=== PATIENT | male | born 1940 | race Caucasian/White ===

== ENCOUNTER 2025-02-11 12:42 | Outpatient (CLI) | payer MEDICARE, SELFPAY | END 2025-02-11 12:43 | disposition home or self-care (01) | PROVIDERS: PCP Internal Medicine; Visit Provider Nurse Practitioner Family | DX: I48.0 Paroxysmal atrial fibrillation (principal); I51.7 Cardiomegaly; I35.2 Nonrheumatic aortic (valve) stenosis with insufficiency | CPT/HCPCS: 93306 ==

== ENCOUNTER 2025-02-17 18:30 | Inpatient (IN) | payer MEDICARE, SELFPAY ==
--- OUTSIDE RECORDS SUMMARY | 2025-01-07 07:30 | XMS_ITS | Encounter Summary ---
Author Organization [facility] Address [address] [place] [address] Care Team Providers Care Plant Utility Person Name Role Phone Unavailable Primary Care Provider Unavailabl e Reason for Visit * Reason Onset Date Comments Pre-visit Intake 01/07/2025 * Appointment Request (Routine) - Authorized Specialty Diagnoses / Procedures Referred By Joãoac t Referred To Contact Oncology Referral ID Status Reason Start Date Expiration Date V isits Requested Visits Authorized [id number] Authorized 10/18/2024 01/18/2026 1 1 Encounter Details Date Type Department Care Team (Latest Contact Info) Description 01/07/2025 7:30 AM CDT Clinical Communication Virtual Review in [place], [place] 200 [place] [address] Pre-visit Intake Social History Tobacco Use Types Packs/Day Years Used Date Smoking Tobacco: Never Passive Smoke Exposure: Never Smokeless Tobacco: Never Alcohol Use Standard Drinks/Week Comments Yes 1 (1 standard drink = 0.6 oz pur e alcohol) one beer a week [facility] Utilities Answer Date Recorded In the past 12 months has e electric, gas, oil, or water company threatened to shut off services in your home? No 12/02/2024 Hunger Vital Sign Answer Date Recorded Within the past 12 months, y ou worried that your food would run out before you got the money to buy more. Never true 12/03/19 25 Within the past 12 months, t he food you bought just didn't last and you didn't have money to get more. Never true 12/02/2024 PRAPARE - Transportation Answer Date Re corded In the past 12 months, has l ack of transportation kept you from medical appointments or from getting medications? No 11/07 In the past 12 months, has l ack of transportation kept you from meetings, work, or from getting things needed for daily living? No 12/02/2024 Housing Stability Answer Date Recorded What is your living situation today? I have a [facility] place to live 12/02/2024 Sex and Gender Information Value Date Recorded Sex Assigned at Male 09/25/2019 4:40 PM BUILDING SUPERINTENDENT Legal Sex Male 11:17 AM BUILDING SUPERINTENDENT Gender Identity Male 09/25/2019 4:40 PM BUILDING SUPERINTENDENT Sexual Orientation Not on file documented as of this encounter Plan of Treatment Not on file documented as of this encounter Visit Diagnoses Not on filedocumented in this encounter Additional Health Concerns Infection Onset Date Last Indicated Resolved Time Protective Environment 11/12/2022 11/12/2022 documented as of this encounter
--- OUTSIDE RECORDS SUMMARY | 2025-01-08 11:17 | XMS_ITS | Encounter Summary ---
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 [address] [place] [phone] Malignant Neoplasm Of Colon (HCC) Discharge Disposition: Home or Self Care Social History Tobacco Use Types Packs/Day Years Used Date Smoking Tobacco: Never Passive Smoke Exposure: Never Smokeless Tobacco: Never Alcohol Use Standard Drinks/Week Comments Yes 1 (1 standard drink = 0.6 oz pur e alcohol) one beer a week [facility] Utilities Answer Date Recorded In [...] your living situation today? I have a [facility] place to live 12/02/2024 Sex and Gender Information Value Date Recorded Sex Assigned at Male 09/25/2019 4:40 PM ON SITE CONSTRUCTION SUPERINTENDENT Legal Sex Male 11:17 AM ON SITE CONSTRUCTION SUPERINTENDENT Gender Identity Male 09/25/2019 4:40 PM ON SITE CONSTRUCTION SUPERINTENDENT Sexual Orientation Not on file documented as of this encounter Medications at Time of Discharge acetaminophen (TYLENOL) 500 mg tablet Take 2 tablets by mouth every 6 (six) hours as needed for pain. 05/06/2016 amLODIPine (NORVASC) 5 mg tablet Take 5 mg by mouth daily. 06/10/2023 amoxicillin (AMOXIL) 500 mg capsule Take 4 capsules by mouth as directed. apixaban (Eliquis) 5 mg tablet Take 10 mg by mouth daily. aspirin 81 mg chewable tablet Chew 81 mg every morning. chew and swallow 12/28/2024 atenoloL (TENORMIN) 25 mg tablet Take 1 tablet by mouth every morning. atorvastatin (LIPITOR) 10 mg tablet Take 10 mg by mouth daily. 06/15/2019 blood sugar diagnostic (glucose blood) strips Use to test blood sugar 1 time daily 02/28/2019 capecitabine (XELODA) 150 mg tabletIndication s:Malignant Neoplasm Of Colon (HCC) Take 5 tablets (750 mg total) by mouth 2 (two) times a day with 1 other capecitabine prescription for 2,250 mg total. Days 1-7 and 15-21. 140 tablet 11/21/2019 capecitabine (XELODA) 500 mg tabletIndication s:Malignant Neoplasm Of Colon (HCC) Take 3 tablets (1,500 mg total) by mouth 2 (two) times a day with 1 other capecitabine prescription for 2,250 mg total. Days 1-7 and 15-21. 84 tablet 11/21/2019 carboxymethylcel lulose (Refresh Tears) 0.5 % ophthalmic solution Administer 1 drop into both eyes daily. cholecalciferol (VITAMIN D3) 50 mcg (2,000 Unit) tablet Take 1 tablet by mouth daily. clobetasoL (TEMOVATE) 0.05 % cream APPLY TO THE AFFECTED AREA(S) TOPICALLY TWICE DAILY FOR ONE WEEK OR UNTIL RESOLUTION. 12/05/2020 clopidogreL (Plavix) 75 mg tablet Take 75 mg by mouth daily. cyanocobalamin/f olic acid (vitamin N37-rwfbe acid) 1,000-400 mcg lozenge hydroCHLOROthiaz erika (HYDRODIURIL) 12.5 mg tablet Take 12.5 mg by mouth 3 (three) times a week. Tuesday, Tuesday and Tuesday ibuprofen (ADVIL,MOTRIN) 200 mg capsule Take 3 capsules (600 mg total) by mouth every 6 (six) hours as needed for pain, mild pain or score 1-3 of 10 or moderate pain or score 4-6 of 10. Do not take for more than 2 weeks continuously Do not take more than 2400 mg in one day Take with food 09/05/2023 Jardiance 10 mg tablet Take 10 mg by mouth every morning before breakfast. 03/04/2023 lisinopril (PRINIVIL,ZESTRI L) 5 mg tablet Take 5 mg by mouth daily. 06/27/2019 melatonin 1 mg tablet Take 2 mg by mouth at bedtime as needed. metFORMIN XR (Glucophage-XR) 500 mg 24 hr tablet Take 1,000 mg by mouth daily with morning meal. 12/07/2024 omega 8-ayx-xqi-fish oil (fish oil) 100-160-1,000 mg capsule vit A/vit C/vit E/zinc/copper (ICAPS AREDS ORAL) Take 1 capsule by mouth 2 (two) times a day. documented as of this encounter Plan of Treatment Not on file documented as of this encounter Procedures Procedure Name Priority Date/Time Associated Diagnosis Comments CBC WITH DIFFERENTIAL, B Routine 025 11:48 AM CDT Malignant Neoplasm Of Colon (HCC) ASPARTATE AMINOTRANSFERASE (AST), S/P Routine 01/08/2025 11:48 AM CDT Malignant Neoplasm Of Colon (HCC) ALKALINE PHOSPHATASE, S/P Routine 01/08/2025 11:48 AM CDT Malignant Neoplasm Of Colon (HCC) BILIRUBIN, TOT, S/P Routine 01/08/2025 1 1:48 AM CDT Malignant Neoplasm Of Colon (HCC) BASIC METABOLIC PANEL, S/P Routine 01/08/2025 11:48 AM CDT Malignant Neoplasm Of Colon (HCC) documented in this encounter Results * Alkaline Phosphatase (01/08/2025 11:48 AM CDT) Alkaline Phosphatase, S 105 40 - 129 U/L 01/08/2025 1:02 PM CDT DTL Blood (Blood, Venous) 01/08/2025 11:48 AM CDT 01/08/2025 12:43 PM CDT us Juve Ocampo M.D. LAB BLOOD ADD-ON Final Re sult Performing Organization Address City/[facility]/ZIP Co de Phone Number [facility] [address] [facility] 200 [place] [address] * AST (Aspartate Aminotransferase) (01/08/2025 11:48 AM CDT) Aspartate Aminotransferase (AST), S 27 8 - 48 U/L 01/08/2025 1:02 PM CDT DTL Blood (Blood, Venous) 01/08/2025 11:48 AM CDT 01/08/2025 12:43 PM CDT us Juve Ocampo M.D. LAB BLOOD ADD-ON Final Re sult [facility] [address] [facility] 200 [place] [address] * Bilirubin, Total (01/08/2025 11:48 AM CDT) Bilirubin, Total, S 0.5 0.0 - 1.2 mg/dL 01/08/2025 1:02 PM CDT DTL Blood (Blood, Venous) 01/08/2025 11:48 AM CDT 01/08/2025 12:43 PM CDT Juve Ocampo M.D. LAB BLOOD ADD-ON Final Re sult [facility] [address] [place] [address], [facility] [address] [place] [address] * (ABNORMAL) Basic Metabolic Panel (01/08/2025 11:48 AM CDT) Potassium, S 4.6 3.6 - 5.2 mmol/L 01/08/2025 1:02 PM CDT DTL Sodium, S 141 135 - 145 mmol/L 01/08/2025 1:02 PM CDT DTL Chloride, S 105 98 - 107 mmol/L 01/08/2025 1:02 PM CDT DTL Bicarbonate, S 23 22 - 29 mmol/L 01/08/2025 1:02 PM CDT DTL Anion Gap 13 7 - 15 01/08/2025 1:02 PM CDT DTL BUN (Blood Urea Nitrogen), S 20 8 - 24 mg/dL 01/08/2025 1:02 PM CDT DTL Creatinine 0.96 0.74 - 1.35 mg/dL 01/08/2025 1:02 PM CDT DTL Estimated GFR (eGFR) 78 >=60 mL/min/BSA 01/08/2025 1:02 PM CDT DTL Comment: Estimated GFR calculated using the 2020 CKD_EPI creatinine equation. Calcium, Total, S 9.1 8.8 - 10.2 mg/dL 01/08/2025 1:02 PM CDT DTL Glucose, S 177(H) 70 - 140 mg/dL 01/08/2025 1:02 PM CDT DTL Blood (Blood, Venous) 01/08/2025 11:48 AM CDT 01/08/2025 12:43 PM CDT us Juve Ocampo M.D. LAB BLOOD ADD-ON Final Re sult [facility] [address] [place] [address], [facility] DTL [facility] [address] [place] [address] * CBC with Differential, Blood (01/08/2025 11:48 AM CDT) Hemoglobin 14.7 13.2 - 16.6 g/dL 01/08/2025 12:48 PM CDT DTL Hematocrit 45.9 38.3 - 48.6 % 01/08/2025 12:48 PM CDT DTL Erythrocytes 5.09 4.35 - 5.65 x10(12)/L 01/08/2025 12:48 PM CDT DTL MCV 90.2 78.2 - 97.9 fL 01/08/2025 12:48 PM CDT DTL RBC Distrib Width 13.7 11.8 - 14.5 % 01/08/2025 12:48 PM CDT DTL Platelet Count 208 135 - 317 x10(9)/L 01/08/2025 12:48 PM CDT DTL Leukocytes 8.4 3.4 - 9.6 x10(9)/L 01/08/2025 12:48 PM CDT DTL Neutrophils 5.34 1.56 - 6.45 x10(9)/L 01/08/2025 12:48 PM CDT DHPM Lymphocytes 2.23 0.95 - 3.07 x10(9)/L 01/08/2025 12:48 PM CDT DTL Monocytes 0.44 0.26 - 0.81 x10(9)/L 01/08/2025 12:48 PM CDT DTL Eosinophils 0.29 0.03 - 0.48 x10(9)/L 01/08/2025 12:48 PM CDT DTL Basophils 0.05 0.01 - 0.08 x10(9)/L 01/08/2025 12:48 PM CDT DTL Blood (Blood, Venous) 01/08/2025 11:48 AM CDT 01/08/2025 12:13 PM CDT us Juve Ocampo M.D. LAB BLOOD ADD-ON Final Re sult [facility] [address] [place] [address], [facility] DTL [facility] [address] [place] [address] [facility] [address] [place] [address] documented in this encounter Visit Diagnoses Diagnosis Malignant Neoplasm Of Colon (HCC) documented in this encounter Additional Health Concerns Infection Onset Date Last Indicated Resolved Time Protective Environment 11/12/2022 11/12/2022 documented as of this encounter
--- OUTSIDE RECORDS SUMMARY | 2025-01-08 13:03 | XMS_ITS | Encounter Summary ---
Author Organization [facility] Address [address] [place] [address] Care Team Providers Care Rolls Baker Name Role Phone Unavailable Primary Care Provider Unavailabl e Reason for Referral * MRI/CAT/PET Scan (Routine) - Closed Specialty Diagnoses / Procedures Referred By Contac t Referred To Contact Radiology Diagnoses Malignant Neoplasm Of Colon (HCC) Procedures CT Chest with IV Contrast Juve Ocampo M.D. 200 [place] [address] Phone: tel: fax: [facility] Referral ID Status Reason Start Date Expiration Date Visits Re quested Visits Authorized [id number] Closed 11/29/2023 11/28/2024 1 1 * MRI/CAT/PET Scan (Routine) - Closed Specialty Diagnoses / Procedures Referred By Bk cain Referred To Contact Radiology Diagnoses Malignant Neoplasm Of Colon (HCC) Procedures CT Abdomen Pelvis with IV Contrast Juve Ocampo M.D. [address] [place] [phone] Phone: tel: fax: [facility] Referral ID Status Reason Start Date Expiration Date Visits Re quested Visits Authorized [id number] Closed 11/29/2023 11/28/2024 1 1 Reason for Visit * MRI/CAT/PET Scan (Routine) - Closed Specialty Diagnoses / Procedures Referred By kB t Referred To Contact Radiology Diagnoses Malignant Neoplasm Of Colon (HCC) Procedures CT Chest with IV Contrast Juve Ocampo M.D. [address] [place] [address] Phone: tel: fax: [facility] Referral ID Status Reason Start Date Expiration Date Visits Re quested Visits Authorized [id number] Closed 11/29/2023 11/28/2024 1 1 Encounter Details Date Type Department Care Team (Latest Contact Info) Description 01/08/2025 1:03 PM CDT - 01/08/2025 11:59 PM CDT Hospital Encounter Department of Radiology, [facility], in [place], [place] [address] [place] [address] Juve Ocampo M.D. [address] [place] [address] Malignant Neoplasm Of Colon (HCC) Discharge Disposition: Home or Self Care Social History Tobacco Use Types Packs/Day Years Used Date Smoking Tobacco: Never Passive Smoke Exposure: Never Smokeless Tobacco: Never Alcohol Use Standard Drinks/Week Comments Yes 1 (1 standard drink = 0.6 oz pur e alcohol) one beer a week [facility] Utilities Answer Date Recorded In the past 12 months has [employer], [employer], or water [employer] threatened to shut off services in your [...] your living situation today? I have a [facility] place to live 12/02/2024 Sex and Gender Information Value Date Recorded Sex Assigned at Male 09/25/2019 4:40 PM BEHAVIORAL HEALTH RN Legal Sex Male 11:17 AM BEHAVIORAL HEALTH RN Gender Identity Male 09/25/2019 4:40 PM BEHAVIORAL HEALTH RN Sexual Orientation Not on file documented as [...] for 2,250 mg total. Days 1-7 and 15-. 140 tablet 11/21/2019 capecitabine (XELODA) 500 mg [...] by mouth daily. cyanocobalamin/f olic acid (vitamin E90-blkqt acid) 1,000-400 mcg lozenge hydroCHLOROthiaz erika (HYDRODIURIL) [...] mouth daily with morning meal. 12/07/2024 omega 1-akl-ujg-fish oil (fish oil) 100-160-1,000 mg capsule vit A/vit C/vit E/zinc/copper (ICAPS AREDS ORAL) Take 1 capsule by mouth 2 (two) times a day. documented as of this encounter Plan of Treatment Not on file documented as of this encounter Procedures Procedure Name Priority Date/Time Associated Diagnosis Comments CT ABDOMEN PELVIS WITH IV CONTRAST RAD - Routine (most inpatients and all outpatients) 01/08/2025 2:14 PM CDT Malignant Neoplasm Of Colon (HCC) CT CHEST WITH IV CONTRAST RAD - Routine (most inpatients and all outpatients) 01/08/2025 2:14 PM CDT Malignant Neoplasm Of Colon (HCC) documented in this encounter Results * CT Chest with IV Contrast (01/08/2025 2:14 PM CDT) Anatomical Region Laterality Modality Chest, Thoracic RST LOS, Tho racic ARZ LOS, Thoracic ARZ LOS, Thoracic FLA LOS N/A Computed Tomography, Compute d Tomography 01/08/2025 2:08 PM CDT Impressions 01/08/2025 3:07 PM CDT 1. New left atrial appendage occlusion device. 2. No metastatic disease in the chest. Narrative 01/08/2025 3:07 PM CDT EXAM: CT CHEST WITH IV CONTRAST COMPARISON: CT chest with IV contrast enhancement 11/29/2023. FINDINGS: Since 11/29/2023, new left atrial appendage occlusion device. Remainder unchanged. Tiny 2-3 mm nodule in the left lung base laterally (3/434). Tiny punctate nodules in the right upper lobe (275 and 272); the medial nodule may be a calcified granuloma. Mild bronchial wall thickening, greater in the lower lungs and greater on the left. Aortic valve calcifications. Coronary artery calcifications. Degenerative changes right shoulder. Old bilateral rib fractures. This examination was performed in conjunction with a CT of the abdomen which will be reported separately. Procedure Note Easton Kirkland M.D. - 01/08/2025 EXAM: CT CHEST WITH IV CONTRAST COMPARISON: CT chest with IV contrast enhancement 11/29/2023. FINDINGS: Since 11/29/2023, new left atrial appendage occlusion device. Remainder unchanged. Tiny 2-3 mm nodule in the left lung base laterally(3/434). Tiny punctate nodules in the right upper lobe (275 and 272); themedial nodule may be a calcified granuloma. Mild bronchial wall thickening, greater in the lower lungs and greater onthe left. Aortic valve calcifications. Coronary artery calcifications. Degenerative changes right shoulder. Old bilateral rib fractures. This examination was performed in conjunction with a CT of the abdomenwhich will be reported separately. IMPRESSION: 1. New left atrial appendage occlusion device. 2. No metastatic disease in the chest. us Juve LYON CT PROCEDURES Final R esult * CT Abdomen Pelvis with IV Contrast (01/08/2025 2:14 PM CDT) Anatomical Region Laterality Modality Abdomen, Pelvis, Abdominal R ST LOS, Abdominal ARZ LOS, Abdominal FLA LOS N/A Computed Tomograp hy, Computed Tomography 01/08/2025 2:12 PM CDT Impressions 01/08/2025 3:57 PM CDT 1. No new CT evidence of abdominopelvic metastatic disease. 2. Slowly enlarging 1.2 cm complex cystic lesion arising from the lower pole of the left kidney. This is indeterminate but suspicious for primary renal neoplasm. This could be more definitively evaluated with dedicated abdominal MRI or followed on subsequent examinations. Narrative 01/08/2025 3:57 PM CDT EXAM: CT ABDOMEN PELVIS WITH IV CONTRAST COMPARISON: CTs of the abdomen/pelvis 11/29/2023, 07/01/2023, prior FINDINGS: Prior right hemicolectomy with patent ileotransverse anastomosis. No abdominopelvic adenopathy or ascites. No discrete omental or peritoneal nodularity. Scattered colonic diverticula. The bowel is normal in caliber. No focal hepatic masses. Probable diffuse hepatic steatosis. No pancreatic or biliary ductal dilatation. A complex septated cystic lesion arising from the lower pole of the left kidney measures approximately 1.2 cm in greatest dimension (series 8, image 76 and series 6, image 71), slightly increased dating back to 07/01/2023, at which time it measured approximately 0.8 cm, and more significantly increased dating back to 12/10/2020, at which time it measured only 4-5 mm maximally. Additional simple cysts throughout both kidneys. Diffuse bladder wall trabeculation. Patent hepatic, portal, and superior mesenteric veins. Arterial vascular calcification. No abdominal aortic aneurysm. Bilateral hip arthroplasties. Stable atrophy of the right psoas musculature. This examination was performed in conjunction with a CT of the chest, reported separately. Procedure Note Maikol Garza M.D. - 01/08/2025 EXAM: CT ABDOMEN PELVIS WITH IV CONTRAST COMPARISON: CTs of the abdomen/pelvis 11/29/2023, 07/01/2023, prior FINDINGS: Prior right hemicolectomy with patent ileotransverseanastomosis. No abdominopelvic adenopathy or ascites. No discrete omentalor peritoneal nodularity. Scattered colonic diverticula. The bowel is normal in caliber. No focal hepatic masses. Probable diffuse hepatic steatosis. No pancreaticor biliary ductal dilatation. A complex septated cystic lesion arising from the lower pole of the leftkidney measures approximately 1.2 cm in greatest dimension (series 8,image 76 and series 6, image 71), slightly increased dating back to07/01/2023, at which time it measured approximately 0.8 cm, and more significantly increased dating back to12/10/2020, at which time it measured only 4-5 mm maximally. Additionalsimple cysts throughout both kidneys. Diffuse bladder walltrabeculation. Patent hepatic, portal, and superior mesenteric veins. Arterial vascularcalcification. No abdominal aortic aneurysm. Bilateral hip arthroplasties. Stable atrophy of the right psoasmusculature. This examination was performed in conjunction with a CT of the chest,reported separately. IMPRESSION: 1. No new CT evidence of abdominopelvic metastatic disease. 2. Slowly enlarging 1.2 cm complex cystic lesion arising from the lowerpole of the left kidney. This is indeterminate but suspicious for primaryrenal neoplasm. This could be more definitively evaluated with dedicatedabdominal MRI or followed on subsequent examinations. us Juve Ocampo M.D. IMJill CT PROCEDURES Final R esult documented in this encounter Visit Diagnoses Diagnosis Malignant Neoplasm Of Colon (HCC) documented in this encounter Administered Medications Inactive Administered Medications - up to 3 most recent administrations Medication Order MAR Action Action Date Dose Rate Site iohexoL 300 mg iodine/mL solution 1-200 mL (Omnipaque) 1-200 mL, intravenous, Once in imaging, contrast, Starting on Tue01/08/25 at 1333, For 1 dose, Imaging Protocol Orders, Dose per Radiant Medication Guidelines Given 01/08/2025 1:58 PM CDT 140 mL sodium chloride (PF) 0.9 % injection 1-100 mL 1-100 mL, intravenous, Once, On Tue01/08/25 at 1400, For 1 dose, Imaging Protocol Orders, Dose per Radiant Medication Guidelines Given 01/08/2025 1:58 PM CDT 50 mL documented in this encounter Additional Health Concerns Infection Onset Date Last Indicated Resolved Time Protective Environment 11/12/2022 11/12/2022 documented as of this encounter
--- OUTSIDE RECORDS SUMMARY | 2025-01-09 09:40 | XMS_ITS | Encounter Summary ---
Author Organization [facility] Address [address] [place] [address] Care Team Providers Care Cook Specialty Name Role Phone Unavailable Primary Care Provider Unavailabl e Reason for Referral * Outpatient (Routine) - Closed Specialty Diagnoses / Procedures Referred By Bk cain Referred To Contact Urology Diagnoses Mass Kidney Juve Ocampo M.D. 200 [place] [address] Phone: tel: fax: [facility] Referral ID Status Reason Start Date Expiration Date Visits Re quested Visits Authorized [id number] Closed 01/09/2025 07/11/2026 1 1 Reason for Visit * Outpatient (Routine) - Closed Specialty Diagnoses / Procedures Referred By Bk cain Referred To Contact Oncology Juve Ocampo M.D. [address] [place] [phone] Phone: tel: fax: [facility] Referral ID Status Reason Start Date Expiration Date Visits Re quested Visits Authorized [id number] Closed 11/29/2023 05/30/2025 1 1 Encounter Details Date Type Department Care Team (Late st Contact Info) Description 01/09/2025 9:40 AM CDT Office Visit Department of Oncology in [place], [place] [address] [place] [address] Juve Ocampo M.D. 200 [place] [address] Mass Kidney (Primary Dx) Social History Tobacco Use Types Packs/Day Years Used Date Smoking Tobacco: Never Passive Smoke Exposure: Never Smokeless Tobacco: Never Alcohol Use Standard Drinks/Week Comments Yes 1 (1 standard drink = 0.6 oz pur e alcohol) one beer a week [facility] Utilities Answer Date Recorded In the past 12 months has th e electric, gas, oil, or water company [...] your living situation today? 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 Legal Sex Male 11:17 AM REGULATORY AUDITOR Gender Identity Male 09/25/2019 4:40 PM REGULATORY AUDITOR Sexual Orientation Not on file documented as of this encounter Last Filed Vital Signs Vital Sign Reading Time Taken Comments Blood Pressure 153/66 01/09/2025 9:23 AM CDT Pulse 80 01/09/2025 9:23 AM CDT Temperature 37 C (98.6 F) 01/09/2025 9:23 AM CDT Respiratory Rate 15 01/09/2025 9:23 AM CDT Oxygen Saturation 94% 01/09/2025 9:23 AM CDT Inhaled Oxygen Concentration - - Weight 107 kg (236 lb 5.3 oz) 01/09/2025 9:23 AM CDT Height 176 cm (5' 9.29) 01/09/2025 9:23 AM CDT Body Mass Index 34.61 01/09/2025 9:23 AM CDT documented in this encounter Progress Notes * Ramila Romano M.D. - 01/09/2025 9:40 AM CDT SUBJECTIVE CHIEF COMPLAINT/REASON FOR VISIT Resected stage III colon carcinoma. HISTORY OF PRESENT ILLNESS Mr. 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 The patient had 1 of 68 metastatic regional lymph nodes, and there was evidence of lymphovascular invasion with negative surgical margins. The tumor had intact mismatch repair proteins, and there was nonmutated JUSTINE and BEATRICE genes. The patient was offered systemic adjuvant therapy but elected not to receive such treatment. I last saw him in clinicin 11/2022 at which time he had no evidence of recurrent or metastatic disease. Patient returns today for followup evaluation. He indicates that he has been doing well. 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 He has not noted any abdominal pain or blood in urine. His bowels move regularly with no blood is evidentin his stool. OBJECTIVE PHYSICAL EXAMINATION General: Mr. José is a pleasant elderly gentleman in no acute distress. BP 153/66 (BP Location: Right arm, Patient Position: Sitting, Cuff Size: Regular) Pulse 80 Temp37 ??C (Tympanic) Resp 15 Ht 176 cm Wt 107 kg SpO2 94% BMI 34.61 kg/m?? HEENT: Anicteric sclerae. Moist mucous membranes. Lungs: Nonlabored breathing on room air, no cough or wheeze. Cardiac: Regular rate and rhythm. Normal S1 and S2. Abdomen: Nontender, nondistended. Extremities: Without pretibial edema. Neurological: Alert, oriented. No focal deficits. Skin: No rashes on exposed surfaces. DIAGNOSTICS Creatinine 0.96. CEA not drawn today, last value in 2023 was 7.6 (persistently elevated since 2020+) CT chest, abdomen, and pelvis from this visit showed no evidence of recurrence or metastasis. ASSESSMENT / PLAN #1 Resected [id number] adenocarcinoma of the proximal transverse colon for which patient had extended right hemicolectomy The patient is now approximately 5 years status post surgical resection for his stage III colon carcinoma for which he did not receive adjuvant therapy. He had only 1 of 68 positive regional lymph nodes and elected not to take adjuvant treatment. He remains without evidence of recurrent or metastatic disease. His last colonoscopy was in 03/2023 and was negative. He can repeat that procedure in 2025 if he continues to do well, if at that time no concerns, could discontinue colonoscopies afterward. He can graduate from our clinic today. # 1.2 cm complex cystic mass of the left lower pole kidney, concerning for primary renal neoplasm Incidentally noted on routine surveillance imaging for follow up of his resected colon cancer. It has slowly grown and is not exhibiting features concerning for primary renal neoplasm. He express a preference to be referred to Urology here at [place], we will make this referral. # Prior NSTEMI # Hypertension # Type 2 diabetes mellitus # Obstructive sleep apnea # Obesity Patient seen and discussed with Dr. Ocampo. Electronically signed by: Ramila Romano M.D. 01/09/25 10:03 AM CDT Cosigned by Juve Ocampo M.D. at 01/09/2025 10:09 AM CDT documented in this encounter Plan of Treatment Scheduled Referrals Name Type Priority Associated Diagnoses Orde r Schedule Urology - Oncology - kidney / ureter consult (clinic) Outpatient Referral Routine Mass Kidney Expected: 01/09/2025, Expires: 04/11/2026 documented as of this encounter Results * Urinalysis, with Microscopic: Urine, Midstream (01/30/2025 11:47 AM CDT) Source Urine, Urine, Midstream 01/30/2025 12:59 PM CDT DTL Color, U Yellow 01/30/2025 12:59 PM CDT DTL Clarity, U Clear 01/30/2025 12:59 PM CDT DTL Protein, U 7 <26 mg/dL 01/30/2025 2:14 PM CDT DTL Protein/Osmol ality 0.10 <0.42 ratio 01/30/2025 2:14 PM CDT DTL Predicted 24 HR Protein, U 103 <229 mg/24 h 01/30/2025 2:14 PM CDT DTL Predicted Range 33-326 mg/24 h 01/30/2025 2:14 PM CDT DTL Urine (Urine, Midstream) 01/30/2025 11:47 AM CDT 01/30/2025 12:59 PM CDT us Juve Ocampo M.D. LAB URINE ORDERABLES Dariana l Result Performing Organization Address City/[facility]/ZIP Co de Phone Number [facility] [address] [facility] [place] [facility] 200 [place] [address] * Sodium (01/30/2025 11:40 AM CDT) Sodium, S 141 135 - 145 mmol/L 01/30/2025 12:51 PM CDT DTL Blood (Blood, Venous) 01/30/2025 11:40 AM CDT 01/30/2025 12:25 PM CDT us Juve Ocampo M.D. LAB BLOOD ADD-ON Final Re sult Performing Organization Address City/[facility]/ZIP Co de Phone Number [facility] [address] [place] [address], [facility] 200 [place] [address] * Potassium (01/30/2025 11:40 AM CDT) Potassium, S 4.7 3.6 - 5.2 mmol/L 01/30/2025 12:51 PM CDT DTL Blood (Blood, Venous) 01/30/2025 11:40 AM CDT 01/30/2025 12:25 PM CDT us Juve Ocampo M.D. LAB BLOOD ADD-ON Final Re sult Performing Organization Address City/[facility] Co de Phone Number [facility] [address] [facility] [place] [facility] 200 [place] [address] * Creatinine with Estimated GFR (01/30/2025 11:40 AM CDT) Creatinine 0.97 0.74 - 1.35 mg/dL 01/30/2025 12:51 PM CDT DTL Estimated GFR (eGFR) 77 >=60 mL/min/BSA 01/30/2025 12:51 PM CDT DTL Comment: Estimated GFR calculated using the 2020 CKD_EPI creatinine equation. Blood (Blood, Venous) 01/30/2025 11:40 AM CDT 01/30/2025 12:25 PM CDT us Juve Ocampo M.D. LAB BLOOD ADD-ON Final Re sult Performing Organization Address [facility] Co de Phone Number [facility] 200 [place] [id number] [place] [facility] 200 [place] [address] * Chloride (01/30/2025 11:40 AM CDT) Chloride, S 104 98 - 107 mmol/L 01/30/2025 12:51 PM CDT DTL Blood (Blood, Venous) 01/30/2025 11:40 AM CDT 01/30/2025 12:25 PM CDT us Juve Ocampo M.D. LAB BLOOD ADD-ON Final Re sult Performing Organization Address City/[facility] Co de Phone Number [facility] [address] [place], [place] [phone] [place] [address] 200 [place] [address] * Calcium, Total (01/30/2025 11:40 AM CDT) Calcium, Total, S 9.3 8.8 - 10.2 mg/dL 01/30/2025 12:51 PM CDT DTL Blood (Blood, Venous) 01/30/2025 11:40 AM CDT 01/30/2025 12:25 PM CDT Juve Ocampo M.D. LAB BLOOD ADD-ON Final Re sult [facility] 200 [place], [place] [phone] [place] [address] 200 [place] [address] * (ABNORMAL) BUN (Blood Urea Nitrogen) (01/30/2025 11:40 AM CDT) [facility] BUN (Blood Urea Nitrogen), S 25(H) 8 - 24 mg/dL 01/30/2025 12:51 PM CDT DTL Blood (Blood, Venous) 01/30/2025 11:40 AM CDT 01/30/2025 12:25 PM CDT us Juve Ocampo M.D. LAB BLOOD ADD-ON Final Re sult [facility] 200 [place] [address], [facility] 200 [place] [address] * Bicarbonate (01/30/2025 11:40 AM CDT) Bicarbonate, S 25 22 - 29 mmol/L 01/30/2025 12:51 PM CDT DTL Blood (Blood, Venous) 01/30/2025 11:40 AM CDT 01/30/2025 12:25 PM CDT us Juve Ocampo M.D. LAB BLOOD ADD-ON Final Re sult [facility] [address] [facility] [place] [facility] 200 [place] [address] * CBC without Differential (01/30/2025 11:40 AM CDT) Hemoglobin 16.0 13.2 - 16.6 g/dL 01/30/2025 12:14 PM CDT DTL Hematocrit 48.1 38.3 - 48.6 % 01/30/2025 12:14 PM CDT DTL Erythrocytes 5.34 4.35 - 5.65 x10(12)/L 01/30/2025 12:14 PM CDT DTL MCV 90.1 78.2 - 97.9 fL 01/30/2025 12:14 PM CDT DTL RBC Distrib Width 14.3 11.8 - 14.5 % 01/30/2025 12:14 PM CDT DTL Platelet Count 174 135 - 317 x10(9)/L 01/30/2025 12:14 PM CDT DTL Leukocytes 8.0 3.4 - 9.6 x10(9)/L 01/30/2025 12:14 PM CDT DTL Blood (Blood, Venous) 01/30/2025 11:40 AM CDT 01/30/2025 12:01 PM CDT us Juve Ocampo M.D. LAB BLOOD ADD-ON Final Re sult [facility] [address] [place], [place] [phone] [place] [address] [facility] [place] [facility] [address] [place] [address] * AST (Aspartate Aminotransferase) (01/30/2025 11:40 AM CDT) Aspartate Aminotransferase (AST), S 22 8 - 48 U/L 01/30/2025 12:51 PM CDT DTL Blood (Blood, Venous) 01/30/2025 11:40 AM CDT 01/30/2025 12:25 PM CDT Juve Ocampo M.D. LAB BLOOD ADD-ON Final Re sult Performing Organization Address City/[facility]/ZIP Co de Phone Number [facility] [address] [place] [address], [facility] 200 [place] [address] * ALT (Alanine Aminotransferase) (01/30/2025 11:40 AM CDT) Alanine Aminotransferase (ALT), S 26 7 - 55 U/L 01/30/2025 12:51 PM CDT DTL Blood (Blood, Venous) 01/30/2025 11:40 AM CDT 01/30/2025 12:25 PM CDT us Juve Ocampo M.D. LAB BLOOD ADD-ON Final Re sult Performing Organization Address [facility]/ZIP Co de Phone Number [facility] [address] [place] [address], [facility] 200 [place] [address] * Alkaline Phosphatase (01/30/2025 11:40 AM CDT) Alkaline Phosphatase, S 103 40 - 129 U/L 01/30/2025 12:51 PM CDT DTL Blood (Blood, Venous) 01/30/2025 11:40 AM CDT 01/30/2025 12:25 PM CDT Juve Ocampo M.D. LAB BLOOD ADD-ON Final Re sult [facility] [address] [place] [address], [facility] 200 [place] [address] documented in this encounter Visit Diagnoses Diagnosis Mass Kidney- Primary documented in this encounter Additional Health Concerns Infection Onset Date Last Indicated Resolved Time Protective Environment 11/12/2022 11/12/2022 documented as of this encounter
--- OUTSIDE RECORDS SUMMARY | 2025-01-30 11:00 | XMS_ITS | Encounter Summary ---
Author Organization [facility] Address [address] [place] [address] Care Team Providers Care Java Consultant Name Role Phone Unavailable Primary Care Provider Unavailabl e Encounter Details Date Type Department Care Team (Latest Contact Info) Description 01/30/2025 11:00 AM CDT - 01/30/2025 11:09 AM CDT Hospital Encounter Department of Laboratory Medicine and Pathology, [facility], in [place], [place] [address] [place] [address] Juve Ocampo M.D. [address] [place] [phone] Mass Kidney Discharge Disposition: Home or Self Care Social History Tobacco Use Types Packs/Day Years Used Date Smoking Tobacco: Never Passive Smoke Exposure: Never Smokeless Tobacco: Never Alcohol Use Standard Drinks/Week Comments Yes 1 (1 standard drink = 0.6 oz pur e alcohol) one beer a week [facility] Utilities Answer Date Recorded In the past 12 months has [employer] electric, gas, oil, or water company threatened [...] your living situation today? 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 cyanocobalamin/f olic acid (vitamin F23-labql acid) 1,000-400 mcg lozenge hydroCHLOROthiaz erika (HYDRODIURIL) [...] mouth daily with morning meal. 12/07/2024 omega 5-ykc-omu-fish oil (fish oil) 100-160-1,000 mg capsule vit A/vit C/vit E/zinc/copper (ICAPS AREDS ORAL) Take 1 capsule by mouth 2 (two) times a day. documented as of this encounter Plan of Treatment Not on file documented as of this encounter Procedures Procedure Name Priority Date/Time Associated Diagnosis Comments DIPSTICK, U Routine 01/30/2025 11:47 AM CDT MICROSCOPIC AUTOMATED Routine 01/30/2025 11:47 AM CDT PH, U Routine 01/30/2025 11:47 AM CDT OSMOLALITY, U Routine 01/30/2025 11:47 AM CDT URINALYSIS WITH MICROSCOPIC Routine 01/30/2025 11:47 AM CDT Mass Kidney documented in this encounter Results * (ABNORMAL) Dipstick, Urine (01/30/2025 11:47 AM CDT) Hemoglobin, QL, U Negative Negative 01/30/2025 1:30 PM CDT DTL Leukocyte Esterase, U Negative Negative 01/30/2025 1:30 PM CDT DTL Nitrite, U Negative Negative 01/30/2025 1:30 PM CDT DTL Ketone, U Negative Negative mg/dL 01/30/2025 1:30 PM CDT DTL Glucose, U >=1000(A) Negative mg/dL 01/30/2025 1:30 PM CDT DTL Urine 01/30/2025 11:4 7 AM CDT 01/30/2025 12:59 PM CDT us Juve Ocampo M.D. LAB URINE ORDERABLES Dariana l Result Performing Organization Address City/[facility]/ZIP Co de Phone Number [facility] [address] [facility] 200 [place] [address] * Osmolality, Urine (01/30/2025 11:47 AM CDT) Osmolality, U 711 150 - 1150 mOsm/kg 01/30/2025 1:51 PM CDT DTL Urine 01/30/2025 11:4 7 AM CDT 01/30/2025 12:59 PM CDT us Juve Ocampo M.D. LAB URINE ORDERABLES Dariana l Result [facility] [address] DTL [facility] [place] 200 [place] [address] * Microscopic Automated (01/30/2025 11:47 AM CDT) Microscopy Normal 01/30/2025 1:30 PM CDT DTL RBC None Seen <3 /hpf 01/30/2025 1:30 PM CDT DTL WBC None Seen /hpf 01/30/2025 1:30 PM CDT DTL Comment: ----REFERENCE VALUE---- <4 (Males) <11 (Females) Urine 01/30/2025 11:4 7 AM CDT 01/30/2025 12:59 PM CDT Juve Ocampo M.D. LAB URINE ORDERABLES Dariana l Result Performing Organization Address City/[facility]/ZIP Co de Phone Number [facility] [address] [facility] 200 [place] [address] * pH, Urine (01/30/2025 11:47 AM CDT) Pathologist [facility] pH, U 5.2 4.5 - 8.0 01/30/2025 1:5 1 PM CDT DTL Urine 01/30/2025 11:4 7 AM CDT 01/30/2025 12:59 PM CDT us Juve Ocampo M.D. LAB URINE ORDERABLES Dariana l Result [facility] [address] 200 [place] [address] * Urinalysis, with Microscopic: Urine, Midstream (01/30/2025 [...] Juve Ocampo M.D. LAB URINE ORDERABLES Dariana retana Result [facility] [address] [place] [address], [facility] DTL [facility] [place] [address] [place] [address] documented in this encounter Visit Diagnoses Diagnosis Mass Kidney documented in this encounter Additional Health Concerns Infection Onset Date Last Indicated Resolved Time Protective Environment 11/12/2022 11/12/2022 documented as of this encounter
--- OUTSIDE RECORDS SUMMARY | 2025-01-30 11:10 | XMS_ITS | Encounter Summary ---
Author Organization [facility] Address [address] [place] [id number] Care Team Providers Care Agency Trainer Name Role Phone Unavailable Primary Care Provider Unavailabl e Encounter Details Date Type Department Care Team (Latest Contact Info) Description 01/30/2025 11:10 AM CDT - 01/30/2025 11:59 PM CDT Hospital Encounter Department of Laboratory Medicine and Pathology, [facility], in [place], [place] [address] [place] [address] Juve Ocampo M.D. [address] [place] [phone] [facility] Discharge Disposition: Home or Self Care Social History Tobacco Use Types Packs/Day Years Used Date Smoking Tobacco: Never Passive Smoke Exposure: Never Smokeless Tobacco: Never Alcohol Use Standard Drinks/Week Comments Yes 1 (1 standard drink = 0.6 oz pur e alcohol) one beer a week [facility] Utilities Answer Date Recorded In the past 12 months has [employer], gas, oil, or water company threatened [...] your living situation today? 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 cyanocobalamin/f olic acid (vitamin H29-fqxnq acid) 1,000-400 mcg lozenge hydroCHLOROthiaz erika (HYDRODIURIL) [...] mouth daily with morning meal. 12/07/2024 omega 5-olq-qzr-fish oil (fish oil) 100-160-1,000 mg capsule vit A/vit C/vit E/zinc/copper (ICAPS AREDS ORAL) Take 1 capsule by mouth 2 (two) times a day. documented as of this encounter Plan of Treatment Not on file documented as of this encounter Procedures Procedure Name Priority Date/Time Associated Diagnosis Comments CBC WITHOUT DIFFERENTIAL, B Routine 01/30/2025 11:40 AM CDT [facility] BUN (BLOOD UREA NITROGEN), S/P Routine 01/30/2025 11:40 AM CDT [facility] ALANINE AMINOTRANSFERASE (ALT), S/P Routine 01/30/2025 11:40 AM CDT [facility] ASPARTATE AMINOTRANSFERASE (AST), S/P Routine 01/30/2025 11:40 AM CDT [facility] SODIUM, S/P Routine 01/30/2025 11:40 AM CDT [facility] POTASSIUM, S/P Routine 01/30/2025 11:40 AM CDT [facility] ALKALINE PHOSPHATASE, S/P Routine 01/30/2025 11:40 AM CDT [facility] CREATININE WITH EGFR, S/P Routine 01/30/2025 11:40 AM CDT [facility] CHLORIDE, S/P Routine 01/30/2025 11:40 AM CDT [facility] BICARBONATE, B/S/P Routine 01/30/2025 11 :40 AM CDT [facility] CALCIUM, TOT, S/P Routine 01/30/2025 11: 40 AM CDT [facility] documented in this encounter Results * Sodium (01/30/2025 11:40 AM CDT) Sodium, S 141 135 - 145 mmol/L 01/30/2025 12:51 PM CDT DTL Blood (Blood, Venous) 01/30/2025 11:40 AM CDT 01/30/2025 12:25 PM CDT us Juve Ocampo M.D. LAB BLOOD ADD-ON Final Re sult [facility] [address] [place] [address], [place] DTL [facility] [address] [place] [address] * Potassium (01/30/2025 11:40 AM CDT) Potassium, S 4.7 3.6 - 5.2 mmol/L 01/30/2025 12:51 PM CDT DTL Blood (Blood, Venous) 01/30/2025 11:40 AM CDT 01/30/2025 12:25 PM CDT us Juve Ocampo M.D. LAB BLOOD ADD-ON Final Re sult Performing Organization Address [facility] de Phone Number [facility] 200 [place] [address], [facility] 200 [place] [address] * Creatinine with Estimated GFR (01/30/2025 11:40 [...] ADD-ON Final Re sult Performing Organization Address [facility] de Phone Number [facility] [address] [place] [address], [facility] [address] [place] [address] * Chloride (01/30/2025 11:40 AM CDT) Chloride, S 104 98 - 107 mmol/L 01/30/2025 12:51 PM CDT DTL Blood (Blood, Venous) 01/30/2025 11:40 AM CDT 01/30/2025 12:25 PM CDT us Juve Ocampo M.D. LAB BLOOD ADD-ON Final Re sult [facility] 200 [place] [address] * Calcium, Total (01/30/2025 11:40 AM CDT) Calcium, Total, S 9.3 8.8 - 10.2 mg/dL 01/30/2025 12:51 PM CDT DTL Blood (Blood, Venous) 01/30/2025 11:40 AM CDT 01/30/2025 12:25 PM CDT us Juve Ocampo M.D. LAB BLOOD ADD-ON Final Re sult Performing Organization Address City/[facility]/ZIP Co de Phone Number [facility] 200 [place] [address], [facility] 200 [place] [address] * (ABNORMAL) BUN (Blood Urea Nitrogen) (01/30/2025 11:40 AM CDT) BUN (Blood Urea Nitrogen), S 25(H) 8 - 24 mg/dL 01/30/2025 12:51 PM CDT DTL Blood (Blood, Venous) 01/30/2025 11:40 AM CDT 01/30/2025 12:25 PM CDT us Juve Ocampo M.D. LAB BLOOD ADD-ON Final Re sult [facility] 200 [place] [address], [place] [address] * Bicarbonate (01/30/2025 11:40 AM CDT) Bicarbonate, S 25 22 - 29 mmol/L 01/30/2025 12:51 PM CDT DTL Blood (Blood, Venous) 01/30/2025 11:40 AM CDT 01/30/2025 12:25 PM CDT us Juve Ocampo M.D. LAB BLOOD ADD-ON Final Re sult Performing Organization Address City/[facility]/ZIP Co de Phone Number [facility] [address] DTL [facility] [address] [place] [address] * CBC without Differential (01/30/2025 11:40 AM CDT) Pathologist [facility] Hemoglobin 16.0 13.2 - 16.6 g/dL 01/30/2025 [...] ADD-ON Final Re sult Performing Organization Address City/[facility]/ZIP Co de Phone Number [facility] [address] DTL [facility] [address] [place] [address] * AST (Aspartate Aminotransferase) (01/30/2025 11:40 AM CDT) Aspartate Aminotransferase (AST), S 22 8 - 48 U/L 01/30/2025 12:51 PM CDT DTL Blood (Blood, Venous) 01/30/2025 11:40 AM CDT 01/30/2025 12:25 PM CDT Juve Ocampo M.D. LAB BLOOD ADD-ON Final Re sult Performing Organization Address City/[facility]/ZIP Co de Phone Number [facility] [address] [place] [address], [facility] 200 [place] [address] * ALT (Alanine Aminotransferase) (01/30/2025 11:40 AM CDT) Alanine Aminotransferase (ALT), S 26 7 - 55 U/L 01/30/2025 12:51 PM CDT DTL Blood (Blood, Venous) 01/30/2025 11:40 AM CDT 01/30/2025 12:25 PM CDT Result Maxwell Ocampo M.D. LAB BLOOD ADD-ON Final Re sult Performing Organization Address [facility] Co de Phone Number [facility] [address] [place] [address], [facility] [address] [place] [address] * Alkaline Phosphatase (01/30/2025 11:40 AM CDT) Alkaline Phosphatase, S 103 40 - 129 U/L 01/30/2025 12:51 PM CDT DTL Blood (Blood, Venous) 01/30/2025 11:40 AM CDT 01/30/2025 12:25 PM CDT us Juve Ocampo M.D. LAB BLOOD ADD-ON Final Re sult [facility] [address] [place] [address], [place] DTL [facility] [address] [place] [address] documented in this encounter Visit Diagnoses Diagnosis [facility] documented in this encounter Additional Health Concerns Infection Onset Date Last Indicated Resolved Time Protective Environment 11/12/2022 11/12/2022 documented as of this encounter
--- OUTSIDE RECORDS SUMMARY | 2025-01-30 13:30 | XMS_ITS | Encounter Summary ---
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 Role Phone Unavailable Primary Care Provider Unavailabl e Reason for Referral * Outpatient (Routine) - Authorized Specialty Diagnoses / Procedures Referred By Bk cain Referred To Contact Urology Chon Edouard MPAS, P.A.-CChantel [address] [place] [phone] Phone: tel:[phone] fax: Mariann Aponte P.A.-CChantel [address] [place] [phone] Phone: tel: fax: Referral ID Status Reason Start Date Expiration Date V isits Requested Visits Authorized [id number] Authorized 01/30/2025 08/01/2026 1 1 * MRI/CAT/PET Scan (Routine) - Authorized Specialty Diagnoses / Procedures Referred By Bk cain Referred To Contact Radiology Diagnoses [facility] Procedures CT Chest without IV Contrast Chon Edouard MPAS, P.A.-CChantel [address] [place] [phone] Phone: tel: fax: [facility] Referral ID Status Reason Start Date Expiration Date V isits Requested Visits Authorized [id number] Authorized 01/30/2025 2026 1 1 * MRI/CAT/PET Scan (Routine) - Authorized Specialty Diagnoses / Procedures Referred By Contac t Referred To Contact Radiology Diagnoses [facility] Procedures CT Abdomen Pelvis without and with IV Contrast Chon Edouard MPAS P.A.-CChantel [address] [place] [phone] Phone: tel:[phone] fax: [facility] Referral ID Status Reason Start Date Expiration Date V isits Requested Visits Authorized [id number] Authorized 01/30/2025 2026 1 1 Reason for Visit * Outpatient (Routine) - Closed Specialty Diagnoses / Procedures Referred By Contac t Referred To Contact Urology Diagnoses [facility] Juve Ocampo M.D. [address] [place] [phone] Phone: tel: fax: [facility] Referral ID Status Reason Start Date Expiration Date Visits Re quested Visits Authorized [id number] Closed 01/09/2025 07/11/2026 1 1 Encounter Details Date Type Department Care Team (Late st Contact Info) Description 01/30/2025 1:30 PM CDT Comprehensive Visit Department of Urology in [place], [place] [address] [place] [phone] Andre Redman M.D. [address] [place] [phone] [facility] Social History Tobacco Use Types Packs/Day Years Used Date Smoking Tobacco: Never Passive Smoke Exposure: Never Smokeless Tobacco: Never Alcohol Use Standard Drinks/Week Comments Yes 1 (1 standard drink = 0.6 oz pur e alcohol) one beer a week [facility] Utilities Answer Date Recorded In [...] your living situation today? 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 - 01/30/2025 1:30 PM CDT SUBJECTIVE REQUESTING PROVIDER: Juve Ocampo M.D. REASON FOR CONSULT Renal cyst Patient seen on Dr. Redman's calendar. 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 He was offered adjuvant chemotherapy but declined. He has been without evidence of disease since. On surveillance scans, there was an 8 mm left lower pole renal cyst with a thin septation noted June of 2023. His most recent CT on 01/08/2025 showed a complex septated cystic mass in the lower pole of the left kidney now measuring 1.2 cm. Creatinine is stable at 0.97. Chest CT without any concerning pulmonary nodules. He has no notable family history for renal cancer. No flank pain or gross hematuria. He has atrial fibrillation status post Watchman device on anticoagulation. He also has a history of BPH status post HoLEP in August 2023, hypertension, KYRA, type 2 diabetes. OBJECTIVE PHYSICAL EXAMINATION General: Well-appearing, in no acute apparent distress. DIAGNOSTICS LABORATORY: Recent Results (from the past 72 hours) Alkaline Phosphatase Collection Time: 01/30/25 11:40 AM Result Value Alkaline Phosphatase, S 103 ALT (Alanine Aminotransferase) Collection Time: 01/30/25 11:40 AM Result Value Alanine Aminotransferase (ALT), S 26 AST (Aspartate Aminotransferase) Collection Time: 01/30/25 11:40 AM Result Value Aspartate Aminotransferase (AST), S 22 CBC without Differential Collection Time: 01/30/25 11:40 AM Result Value Hemoglobin 16.0 Hematocrit 48.1 Erythrocytes 5.34 MCV 90.1 RBC Distrib Width 14.3 Platelet Count 174 Leukocytes 8.0 Bicarbonate Collection Time: 01/30/25 11:40 AM Result Value Bicarbonate, S 25 BUN (Blood Urea Nitrogen) Collection Time: 01/30/25 11:40 AM Result Value BUN (Blood Urea Nitrogen), S 25 (H) Calcium, Total Collection Time: 01/30/25 11:40 AM Result Value Calcium, Total, S 9.3 Chloride Collection Time: 01/30/25 11:40 AM Result Value Chloride, S 104 Creatinine with Estimated GFR Collection Time: 01/30/25 11:40 AM Result Value Creatinine 0.97 Estimated GFR (eGFR) 77 Potassium Collection Time: 01/30/25 11:40 AM Result Value Potassium, S 4.7 Sodium Collection Time: 01/30/25 11:40 AM Result Value Sodium, S 141 IMAGING: CT Abdomen Pelvis with IV Contrast Result Date: 01/08/2025 Impression: 1. No new CT evidence of abdominopelvic metastatic disease. 2. Slowly enlarging 1.2 cm complex cystic lesion arising from the lower pole of the left kidney. This is indeterminate but suspicious for primary renal neoplasm. This could be more definitively evaluated with dedicated abdominal MRI or followed on subsequent examinations. CT Chest with IV Contrast Result Date: 01/08/2025 Impression: 1. New left atrial appendage occlusion device. 2. No metastatic disease in the chest. ASSESSMENT / PLAN #1 Renal cyst #2 Colon adenocarcinoma He has a 1.2 cm left lower pole renal cyst that appears to be a Bosniak 2 F. There has been marginal growth from 8 mm in June 2023, thin septations were appreciated at that time. His renal function has baseline and no concerning pulmonary nodules. He has a history of resected adenocarcinoma of the transverse colon, he did not receive chemotherapy. We discussed the nature of renal cysts including the Bozniak scoring system. Most cysts are incidentally discovered and are asymptomatic. Bozniak 1 and 2 cysts are considered simple cysts and considered benign without the need for routine follow up unless they are symptomatic, infected, or affecting renal function. Bozniak 2 F cysts have a 5-10% risk of malignancy and are often followed with repeat imaging. Bozniak 3 cysts have a 55% risk of malignancy and Bozniak 4 cysts have a 70-85% risk of malignancy. We do not typically biopsy renal cysts. Risk associated with metastases increases with increased size of the solid, enhancing portion of the cyst. For solid masses less than 4 cm, there is <1% risk of metastases. Treatment options for renal cysts include active surveillance, percutaneous ablation, partial nephrectomy, and radical nephrectomy. Ablation has a 6% complication rate, and surgery's complication rate is 12%. In discussion with Dr. Redman and the patient, recommend active surveillance. Repeat CT abdomen, CT chest noncontrast, BMP, and office visit in 1 year. VICKIE Weathers, P.A.-C. 01/30/2025 1:03 PM CDT Answers submitted by the patient for this visit: Cancer Intake Questionnaire (Submitted on 01/23/2025) Fatigue?: No Headaches?: No Hematuria?: No Adenopathy?: No Nausea?: No Vomiting?: No Weight loss?: No abdominal pain: No flank pain: No Suprapubic pain: No No pain: Yes Bone pain: No Perineal pain: No Testicular pain: No Which of the following best describes your current physical abilities?: 1 - symptoms but ambulatory History of prior chemotherapy: No History of radiation: No Chemotherapy: No Receiving treatment: No Have you ever been exposed to dangerous chemicals or radioactivity? (Examples: Farming, Shipping, construction, chemical plants, etc) : No Which immediate family members below have been diagnosed with cancer involving the kidneys, ureters(urine tubes from kidneys to bladder), bladder, prostate, urethra, or penis?: brother documented in this encounter Plan of Treatment Scheduled Orders Name Type Priority Associated Diagnoses Orde r Schedule CT Abdomen Pelvis without and with IV Contrast Imaging RAD - Routine (most inpatients and all outpatients) [facility] Expected: 01/30/2026, Expires: 2026 CT Chest without IV Contrast Imaging RAD - Routine (most inpatients and all outpatients) [facility] Expected: 01/30/2026, Expires: 2026 Basic Metabolic Panel Lab Routine [facility] Expected: 01/30/2026, Expires: 2026 Scheduled Referrals Name Type Priority Associated Diagnoses Orde r Schedule Urology office visit (clinic) Outpatient Referral Routine Expected: 01/30/2026, Expires: 2026 documented as of this encounter Visit Diagnoses Diagnosis [facility] documented in this encounter Additional Health Concerns Infection Onset Date Last Indicated Resolved Time Protective Environment 11/12/2022 11/12/2022 documented as of this encounter
[2025-02-17] VITALS (11 sets, daily range): BP systolic 110–156; BP diastolic 55–76; PULSE 63–104; RESP 13–18; TEMP 36.7; O2SAT 93–97; BMI 34.3; BMI 34.2
--- NOTE | 2025-02-17 19:29 | ED.GIBLEED ---
HPI - GI Bleed General Time Seen by Provider: 19:30 Date Seen: 02/17/25 Chief complaint: GI Bleed Stated complaint: alot of blood in stool Time Seen by Provider: 02/17/25 19:29 Source: patient and RN notes reviewed Mode of arrival: ambulatory Limitations: no limitations History of Present Illness HPI Narrative: This 84-year-old male is coming in accompanied by his with concern of rectal bleeding. He had dark tarry stools followed by dark blood twice today, 1 at noon and 1 at 4:00 p.m.. He has had no abdominal pain, no cramping, no fevers or chills. He has a history of colon cancer resected at [place] 5 years ago. He has followed with Oncology there, his CT scans have been clear, had a clear colonoscopy last year per report. He has not had bleeding before. He is not feeling symptomatic, stating he does not feel dizzy, not lightheaded, no chest pain, no shortness of breath. He does have a watch min for atrial fibrillation history, is due to follow-up tomorrow. He is on aspirin and Plavix for history of coronary artery disease with stent placement but no other blood thinners. Related Data Home Medications ?Medication ?Instructions ?Recorded ?Confirmed amlodipine 5 mg tablet 5 mg PO QAM 02/07/25 02/07/25 aspirin 81 mg tablet 81 mg PO QDAY 02/07/25 02/07/25 atorvastatin 10 mg tablet 10 mg PO QDAY 02/07/25 02/07/25 cholecalciferol (vitamin D3) 25 25 mcg PO QDAY 02/07/25 02/07/25 mcg (1,000 unit) capsule clopidogrel 75 mg tablet 75 mg PO QDAY 02/07/25 02/07/25 empagliflozin 10 mg tablet 10 mg PO QAM 02/07/25 02/07/25 (Jardiance) hydrochlorothiazide 12.5 mg tablet 12.5 mg PO QAM 02/07/25 02/07/25 lisinopril 5 mg tablet 5 mg PO QAM 02/07/25 02/07/25 mecobalamin (vitamin B12) 1,000 1,000 mcg PO QDAY 02/07/25 02/07/25 mcg lozenges metformin 500 mg tablet 1,000 mg PO QDAY 02/07/25 02/07/25 mv-mn-folic 200 mcg-vit K 15 cap PO 02/07/25 02/07/25 mcg-lutein 5 mg-zeaxanthin 1 mg capsule (PreserVision AREDS 2 Plus Multivit) Allergies Allergy/AdvReac Type Severity Reaction Status Date / Time bee venom protein (honey bee) Allergy Intermediate edema Verified 02/07/25 10:11 oxycodone Allergy Unknown Hallucinati Verified 02/07/25 10:11 ng Review of Systems Status of ROS: Reports: 6 or more systems reviewed and unremarkable except as noted in History and below [facility] Medical History History of non-ST elevation myocardial infarction (NSTEMI) ?I25.2 - Old myocardial infarction (ICD-10) History of kidney stones ?Z87.442 - Personal history of urinary calculi (ICD-10) History of atrial fibrillation ?Z86.79 - Personal history of other diseases of the circulatory system (ICD-10) Renal cyst ?N28.1 - Cyst of kidney, acquired (ICD-10) History of colon cancer ?Z85.038 - Personal history of other malignant neoplasm of large intestine (ICD-10) KYRA (obstructive sleep apnea) ?G47.33 - Obstructive sleep apnea (adult) (pediatric) (ICD-10) Morbid obesity ?E66.01 - Morbid (severe) obesity due to excess calories (ICD-10) Type 2 diabetes mellitus ?E11.9 - Type 2 diabetes mellitus without complications (ICD-10) Hyperlipidemia ?E78.5 - Hyperlipidemia, unspecified (ICD-10) Essential hypertension ?I10 - Essential (primary) hypertension (ICD-10) BPH (benign prostatic hyperplasia) ?N40.0 - Benign prostatic hyperplasia without lower urinary tract symptoms (ICD-10) Surgical History Status post total knee replacement, bilateral (2011) ?Z96.653 - Presence of artificial knee joint, bilateral (ICD-10) History of total right hip arthroplasty ?Z96.641 - Presence of right artificial hip joint (ICD-10) History of prostate surgery (09/05/23) ?Z98.890 - Other specified postprocedural states (ICD-10) Presence of Watchman left atrial appendage closure device ?Z95.818 - Presence of other cardiac implants and grafts (ICD-10) History of colon resection (10/08/11) ?Z90.49 - Acquired absence of other specified parts of digestive tract (ICD-10) Social History What is your current living situation?: declined to answer Problems where you live: declined to answer In the past 12 months, utilities in danger of being shut off: declined to answer In past 12 months, lack of transportation kept you from medical appts, meetings, work, or getting things needed for daily living: declined to answer In the past 12 mos, have been you worried that your food would run out before you had money to buy more?: declined to answer In the past 12 mos, the food you bought just didn't last and you didn't have money to buy more?: declined to answer Smoking Status: Never smoker Second hand tobacco smoke exposure: No How often do you have a drink containing alcohol: never AUDIT-C Alcohol total score: 0 Non-prescribed substance use: denies use How often does anyone, including family, friends and others, physically hurt you: decline to answer How often does anyone, including family, friends and others, insult or talk down to you: decline to answer How often does anyone, including family, friends and others, threaten you with harm: decline to answer How often does anyone, including family, friends and others, scream or curse at you: decline to answer Health Related Social Needs: unsheltered homelessness (Z59.02) Exam Const: Vital Signs, click to edit/add: Vital Signs - 24 hr 02/17/25 19:11 02/17/25 19:40 02/17/25 20:02 Temperature 98.1 F Pulse Rate 68 Pulse Rate [Right Radial] 104 H Respiratory Rate 18 16 Blood Pressure 115/67 Blood Pressure [Ri ght Upper Arm] 131/67 Pulse Oximetry 97 97 96 Oxygen Delivery Me thod Room Air 02/17/25 20:22 02/17/25 20:41 02/17/25 21:02 Temperature 98.0 F Pulse Rate 68 66 68 Pulse Rate [Right Radial] Respiratory Rate 18 18 18 Blood Pressure 130/67 127/65 120/56 L Blood Pressure [Ri ght Upper Arm] Pulse Oximetry 95 95 97 Oxygen Delivery Me thod 02/17/25 21:21 02/17/25 21:41 02/17/25 21:51 Temperature 98.0 F Pulse Rate 70 63 Pulse Rate [Right Radial] 85 Respiratory Rate 18 13 13 Blood Pressure 127/65 110/55 L Blood Pressure [Ri ght Upper Arm] 112/65 Pulse Oximetry 93 94 94 Oxygen Delivery Me thod Room Air This 84-year-old male is alert, interactive, no apparent distress. He is conversive, able speak in complete sentences. Sclera clear, face atraumatic. Neck is thick. Lungs are clear, good air entry, able to sit up, no tachypnea, wheezing, no accessory muscle use. CV sounds regular, I do not hear any significant murmur, normal S1-S2. Abdomen is obese, hyperactive bowel sounds but he is nontender, no rebound or guarding, do not hearing organomegaly, cannot feel any masses. No lower extremity edema. Patient was ambulatory into the ED of his own accord. Documenting provider has reviewed patient's vital signs: yes Course Course ED Course: This 84-year-old male is complaining of melena followed by a dark blood on 2 occasions now. He is not symptomatic from acute blood loss on questioning. Will have him on pulse oximetry, cardiac monitoring to watch for hemodynamic change or compromise. He has no abdominal pain. There is a history of colon cancer but has had routine monitoring and normal colonoscopy reported last year. This could be diverticular bleed, AVM bleed, doubt recurrent colon cancer given his routine monitoring. Will do type and screen. Will observe here, may need observation overnight. Reevaluation(s) Time of Reevaluation #1: 21:23 Reevaluation #1: Reviewed with patient recommendations by the hospitalist. Plan is to hospitalize and have EGD tomorrow. We discussed the seriousness of potential complications in this situation and the safety of watching him here. He has had no further stools at this time but certainly could have more. Consultations Consultation #1: Have briefly reviewed with Dr. Dorsey the hospitalist. We discussed patient's case, he does feel that patient should stay, should have an EGD. Patient is both on aspirin and Plavix, I do not know when he had last stent placement. Had not ordered Protonix but will do so at this time, 40 mg. Will update patient. Will get an updated hemoglobin, did give patient 1 L of fluids here so there may be some minor dropping. Time: 21:15 Vital Signs Vital signs: Initial Vital Signs Temperature 98.1 F 02/17/25 19:11 Temperature Source Temporal Artery Scan 02/17/25 19:11 Pulse Rate 104 H 02/17/25 19:11 Pulse Rhythm Regular 02/17/25 19:11 Pulse Strength 3+ Normal 02/17/25 19:11 Respiratory Rate 18 02/17/25 19:11 Blood Pressure 131/67 02/17/25 19:11 Blood Pressure Mean 88 02/17/25 19:11 Blood Pressure Position Supine 02/17/25 19:11 Pulse Oximetry 97 02/17/25 19:11 Oxygen Delivery Method Room Air 02/17/25 19:11 Vital Signs Temperature 98.1 F 02/17/25 19:11 Pulse Rate 104 H 02/17/25 19:11 Respiratory Rate 18 02/17/25 19:11 Blood Pressure 131/67 02/17/25 19:11 Pulse Oximetry 97 02/17/25 19:11 Oxygen Delivery Method Room Air 02/17/25 19:11 Temperature 98.0 F 02/17/25 21:53 Pulse Rate 85 02/17/25 21:53 Respiratory Rate 13 02/17/25 21:53 Blood Pressure 112/65 02/17/25 21:53 Pulse Oximetry 94 02/17/25 21:51 Oxygen Delivery Method Room Air 02/17/25 21:51 Medications Administered Medications: Generic Name Dose Route Start Last Admin Trade Name Freq PRN Reason Stop Dose Admin Pantoprazole Sodium 40 mg 02/17/25 21:19 02/17/25 21:23 Pantoprazole Sodium 40 Mg Inj IVP 02/17/25 21:20 40 mg ONCE ONE Administration Discontinued Medications Generic Name Dose Route Start Last Admin Trade Name Freq PRN Reason Stop Dose Admin Sodium Chloride 1,000 mls @ 500 mls/hr 02/17/25 19:41 02/17/25 21:25 0.9 % Sodium Chloride 1000 Ml IV 02/17/25 21:40 Infused .Q2H FER Infusion MDM - GI Bleed Lab Data Attestation: I reviewed the patient's lab results. Labs: Lab Results 02/17/25 02/17/25 Range/Units 19:32 21:28 WBC 10.47 (4.50-11.00) K/uL RBC 4.86 (4.30-5.90) m/uL Hgb 14.3 12.5 L (13.5-17.5) gm/dL Hct 43.3 (37.0-53.0) % MCV 89 (80-100) fL MCH 29 (26-34) pg MCHC 33 (32-36) gm/dL RDW Coeff of Steven 13.5 (11.5-15.5) % Plt Count 195 (140-440) K/uL Neut % (Auto) 65.4 (42.0-72.0) % Lymph % (Auto) 24.6 (20-44) % Dorado % (Auto) 6.2 (0.0-11.0) % Eos % (Auto) 3.2 (0.0-7.0) % Baso % (Auto) 0.4 (0.0-3.0) % Neut # (Auto) 6.85 (1.7-7.0) K/uL Lymph # (Auto) 2.58 (0.90-2.90) K/uL Dorado # (Auto) 0.60 (0.00-0.90) K/UL Eos # (Auto) 0.33 (0.00-0.50) K/uL Baso # (Auto) 0.04 (0.00-0.30) K/uL Abs Immat Gran (auto) 0.02 (0.00-0.30) K/uL Imm/Tot Granulo (auto) 0.2 % INR 0.92 (0.91-1.10) APTT 29 (23-33) Seconds Sodium 139 (135-149) mmol/L Potassium 4.2 (3.6-5.1) mmol/L Chloride 108 (96-114) mmol/L Carbon Dioxide 24 (20-32) mmol/L Anion Gap 7 (7-15) mEq/L BUN 29 (7-30) mg/dL Creatinine 0.9 (0.5-1.5) mg/dL Estimated Creat Clear 55.97 Estimated GFR 85 ml/min Glucose 183 H (60-115) mg/dL Calcium 9.2 (8.4-10.6) mg/dL Total Bilirubin 0.3 (0.1-1.5) mg/dL AST 27 (12-35) U/L ALT 29 (4-50) U/L Alkaline Phosphatase 88 (40-150) U/L C-Reactive Protein < 0.5 L (0.5-1.0) mg/dL Total Protein 7.0 (6.0-8.3) g/dL Albumin 4.2 (3.3-5.0) g/dL Blood Type B Positive Antibody Screen NEGATIVE ECG Data Attestation: I personally reviewed and interpreted this ECG as follows: (Normal sinus rhythm, 75 beats per minute. No active ischemia noted. Q-waves V1 through V3.) ECG interpretation date: 02/17/25 ECG interpretation time: 19:48 Prior ECG tracings: not available for review Discharge Plan Discharge Clinical Impression: Melena Patient Disposition: Admitted As Observation
[2025-02-17 19:43] LABS: Hematocrit 43.3 % (37.0-53.0); Hemoglobin* 14.3 gm/dL (13.5-17.5); Immature Granulocytes Abs Auto 0.02 K/uL (0.00-0.30); Immature Granulocytes Pct Auto 0.2 %; Lymphocytes Absolute Auto 2.58 K/uL (0.90-2.90); Mean Corpuscular HGB Conc 33 gm/dL (32-36); Mean Corpuscular Hemoglobin 29 pg (26-34); Mean Corpuscular Volume 89 fL (80-100); RDW Coefficient of Variation % 13.5 % (11.5-15.5); Red Blood Count 4.86 m/uL (4.30-5.90); White Blood Count* 10.47 K/uL (4.50-11.00)
[2025-02-17 19:49] LABS: Slide Review Reflex No
--- OUTSIDE RECORDS SUMMARY | 2025-02-17 20:00 | XMS_ITS ---
Author Organization [facility] Address [address] [place] [address] Care Team Providers Care Outreach Specialist Name Role Phone Unavailable Primary Care Provider Unavailabl e Active Problems * This document contains information received from the source organization and may not represent a complete record from that organization. 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 Past Treatment and Therapy Plans Hematology / Oncology Treatment 1 Plan Name Start Date Discontinue Date Treatment Medications Discontinue Reason Plan Provider Cycles CAPOX / XELOX (Capecita bine / Oxaliplat in) Every 2 weeks in Elderly/F rail (Colorect al) 11/28/2019 12/09/2020 capecitabine (Xeloda)oxalipl atin (Eloxatin) Unlisted Juve Ocampo M.D. Treatment not started
--- OUTSIDE RECORDS SUMMARY | 2025-02-17 20:00 | XMS_ITS | Clinical Summary ---
Author Organization [facility] Address [address] [place] [address] Care Team Providers Care Physician Underwriter Name Role Phone Unavailable Primary Care Provider Unavailabl e Source Comments Patient records contain information from all sites at [facility]. For routine questions regarding patient records, call [phone] during business hours, M-F 8:00 AM - 5:00 PM Central Time. Record requests for emergency care only can be directed to [phone] at any time.[facility] Allergies Active Allergy Reactions Criticality Noted Date Comments Oxycodone Hallucinations 11/10/2011 Tolerates tramadol Medications * This document contains information received from the source organization and may not represent a complete record from that organization. acetaminophen (TYLENOL) 500 mg tablet Take 2 tablets by mouth every 6 (six) hours as needed for pain. 6 Active blood sugar diagnostic (glucose blood) strips Use to test blood sugar 1 time daily 9 Active lisinopril (PRINIVIL,ZESTR IL) 5 mg tablet Take 5 mg by mouth daily. 9 Active atorvastatin (LIPITOR) 10 mg tablet Take 10 mg by mouth daily. 9 Active hydroCHLOROthia zide (HYDRODIURIL) 12.5 mg tablet Take 12.5 mg by mouth 3 (three) times a week. Tuesday, Tuesday and Tuesday Active melatonin 1 mg tablet Take 2 mg by mouth at bedtime as needed. Active capecitabine (XELODA) 150 mg tabletIndicatio ns:Malignant Neoplasm Of Colon (HCC) Take 5 tablets (750 mg total) by mouth 2 (two) times a day with 1 other capecitabine prescription for 2,250 mg total. Days 1-7 and 15-. 140 tablet 0 Active Additional Information Patient taking differently:750 mg oral 2 times daily,Starting this 01/09/2020, Reported on 01/08/2020 capecitabine (XELODA) 500 mg tabletIndicatio ns:Malignant Neoplasm Of Colon (HCC) Take 3 tablets (1,500 mg total) by mouth 2 (two) times a day with 1 other capecitabine prescription for 2,250 mg total. Days 1-7 and -. 84 tablet 0 Active Additional Information Patient taking differently:1,500 mg oral 2 times daily,Planning on starting 01/09/2020, Reported on 01/08/2020 cholecalciferol (VITAMIN D3) 50 mcg (2,000 Unit) tablet Take 1 tablet by mouth daily. Active clobetasoL (TEMOVATE) 0.05 % cream APPLY TO THE AFFECTED AREA(S) TOPICALLY TWICE DAILY FOR ONE WEEK OR UNTIL RESOLUTION. 1 Active vit A/vit C/vit E/zinc/copper (ICAPS AREDS ORAL) Take 1 capsule by mouth 2 (two) times a day. Active Jardiance 10 mg tablet Take 10 mg by mouth every morning before breakfast. 3 Active amLODIPine (NORVASC) 5 mg tablet Take 5 mg by mouth daily. 3 Active atenoloL (TENORMIN) 25 mg tablet Take 1 tablet by mouth every morning. Active amoxicillin (AMOXIL) 500 mg capsule Take 4 capsules by mouth as directed. Active ibuprofen (ADVIL,MOTRIN) 200 mg capsule Take 3 capsules (600 mg total) by mouth every 6 (six) hours as needed for pain, mild pain or score 1-3 of 10 or moderate pain or score 4-6 of 10. Do not take for more than 2 weeks continuously Do not take more than 2400 mg in one day Take with food 4 Active omega 3-qxq-irl-fish oil (fish oil) 100-160-1,000 mg capsule Active cyanocobalamin/ folic acid (vitamin E83-yhfkt acid) 1,000-400 mcg lozenge Active apixaban (Eliquis) 5 mg tablet Take 10 mg by mouth daily. Active aspirin 81 mg chewable tablet Chew 81 mg every morning. chew and swallow 12/29/19 Active clopidogreL (Plavix) 75 mg tablet Take 75 mg by mouth daily. Active metFORMIN XR (Glucophage-XR) 500 mg 24 hr tablet Take 1,000 mg by mouth daily with morning meal. 12/15/19 Active carboxymethylce llulose (Refresh Tears) 0.5 % ophthalmic solution Administer 1 drop into both eyes daily. 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 Date Type Department Care Team Description 01/30/2025 1:30 PM CDT Comprehensive Visit Department of Urology in [place], [place] [address] [place] [address] Andre Redman M.D. Mass Kidney 01/30/2025 11:10 AM CDT - 01/30/2025 11:59 PM CDT Hospital Encounter Department of Laboratory Medicine and Pathology, [facility] in [place], [place] [address] [place] [phone] Juve Ocampo M.D. Mass Kidney Discharge Disposition: Home or Self Care 01/30/2025 11:00 AM CDT - 01/30/2025 11:09 AM CDT Hospital Encounter Department of Laboratory Medicine and Pathology, [facility] in [place], [place] [address] [place] [phone] Juve Ocampo M.D. Mass Kidney Discharge Disposition: Home or Self Care 01/09/2025 9:40 AM CDT Office Visit Department of Oncology in [place], [place] [address] [place] [phone] Juve Ocampo M.D. Mass Kidney (Primary Dx) 01/08/2025 1:03 PM CDT - 01/08/2025 11:59 PM CDT Hospital Encounter Department of Radiology, [facility] in [place], [place] [address] [place] [phone] Juve Ocampo M.D. Malignant Neoplasm Of Colon (HCC) Discharge Disposition: Home or Self Care 01/08/2025 11:17 AM CDT - 01/08/2025 1:02 PM CDT Hospital Encounter Department of Laboratory Medicine and Pathology, [facility] in [place], [place] [address] [place] [phone] Juve Ocampo M.D. Malignant Neoplasm Of Colon (HCC) Discharge Disposition: Home or Self Care 01/07/2025 7:30 AM CDT Clinical Communication Virtual Review in [place], [place] [address] [place] [address] Pre-visit Intake 12/05/2024 1:30 PM CDT Telemedicine Department of Urology in [place], [place] [address] [place] [phone] Ladarius Walker M.D. Benign Prostatic Hyperplasia Hypertrophy With Obstruction (Primary Dx); Urinary Urge Incontinence; Malignant Neoplasm Of Colon (HCC); Diabetes Mellitus Type 2 (HCC) Discharge Disposition: Home or Self Care 12/03/2024 Clinical Communication Department of Urology in [place], [place] [address] [place] [address] Ladarius Walker M.D. Order Request 11/29/2024 12:30 PM CDT Procedure visit Department of Urology in [place], [place] [address] [place] [phone] Farzad Rosenbaum M.D. Jenkins, Tara M, R.M.A. Benign Prostatic Hyperplasia Hypertrophy With Obstruction Discharge Disposition: Home or Self Care from Last 3 Months Immunizations Immunization Administration Dates Next Due HZV (ZOSTAVAX) 06/08/2012 Influenza Split 08/14/2013 PPSV23 08/14/2013,2012 influenza trivalent high dose (HD)(PF) ,05/05/2016 Family History Medical History Relation Name Comments No Known Problems Father No Known Problems Maternal Grandfather No Known Problems Maternal Grandmother No Known Problems Mother Relation Name Status Comments Father Maternal Grandfather Maternal Grandmother Mother Social History Tobacco Use Types Packs/Day Years Used Date Smoking Tobacco: Never Passive Smoke Exposure: Never Smokeless Tobacco: Never Alcohol Use Standard Drinks/Week Comments Yes 1 (1 standard drink = 0.6 oz pur e alcohol) one beer a week [facility] Utilities Answer Date Recorded In the past 12 months has [employer], gas, oil, or water [employer] threatened to shut off services in your [...] your living situation today? I have a [facility] place to live 12/02/2024 Sex and Gender Information Value Date Recorded Sex Assigned at Male 09/25/2019 4:40 PM HUMAN RESOURCE MANAGER Legal Sex Male 11:17 AM HUMAN RESOURCE MANAGER Gender Identity Male 09/25/2019 4:40 PM HUMAN RESOURCE MANAGER Sexual Orientation Not on file Last Filed Vital Signs Vital Sign Reading [...] Mass Index 34.61 01/09/2025 9:23 AM CDT Plan of Treatment Health Maintenance Due Date Last Done Comments Diabetic Office Visit with Foot Exam 1941 Urine Albumin 1941 Zoster Vaccines (1 of 2) 08/03/2012 06/08/2012 Hemoglobin A1C 02/15/2023 11/16/2022, 08/0 08/2021, 08/26/2021, Additional history exists Depression Screening (Annual PHQ-2) 08/08/2024 Fall Risk Screen (Annual) 08/08/2024 COVID-19 Vaccine (8 - Moderna risk season) 2024 05/08/2024, 11/12/2023, 07/12/2022, Additional history exists DTaP,Tdap,and Td Vaccines (3 - Td or Tdap) 02/10/2025 02/10/2015, 02/11/2006, 12/02/1997 Office Visit for Blood Pressure Check / Re-check 04/11/2025 01/09/2025 Influenza Vaccine (#1) 2025 , 06/22/2023, 07/12/2022, Additional history exists Dilated Eye Exam 09/06/2025 09/06/2024 Creatinine Level (Kidney Function Test) 01/30/2026 01/30/2025, 01/08/2025, 11/29/2023, Additional history exists Potassium Level 01/30/2026 01/30/2025, 06/0 10/2024, 11/29/2023, Additional history exists Sodium Level 01/30/2026 01/30/2025, 06/0 10/2024, 11/29/2023, Additional history exists Hepatitis B Vaccines Completed 02/05/1995, 09/08/1994, 08/08/1994 Pneumococcal vaccine (50+ years) Completed 09/25/2014, 08/14/2013, 2012, Additional history exists Colonoscopy Discontinued 03/17/2023, 09/10/2019 Colorectal Cancer Surveillance Discontinued RSV vaccine - (32-36 weeks) or 60+ years Completed 11/12/2023 CT Colonography Discontinued Cologuard Discontinued IPV Vaccines Aged Out No longer eligi ble based on patient's age to complete this topic Medical Devices Implanted Type Area Industrial Green Systems Designer Device Identifier Shelf Expiration Date Model / Serial / Lot Cardiac Other-Watchman -12/27/2024 Implanted:12/07 (Quantity not on file) Cardiac Other Heart Description:LEFT ATRIAL APPE NDAGE Trilogy-Screw 6.5x30 - [place] [id number] Implanted:Qty: 2 on 01/29/2011 Hardware e.g. pins/screws/ rods [employer] Description:Device Manufactu rer - [employer]. Device Status Text - [id number]. Trilogy-Screw 6.5x30 - [place] [id number] Implanted:Qty: 2 on 11/27/2013 Hardware e.g. pins/screws/ rods [employer] Description:Device Manufactu rer - [employer]. Device Status Text - HARDWARE-65257. Zim-Liner Poly Xlpe 0 Deg 36x50 - [place] [id number] Implanted:Qty: 1 on 01/29/2011 Hip Implant Other/Legacy - See Implant Description [employer] Description:Device Manufactu rer - [employer]. Body Location - Other. Left. Device Status Text - HIP [id number]. [place]-Stem Morales 5 Hi - [place] [id number] Implanted:Qty: 1 on 01/29/2011 Hip Implant Other/Legacy - See Implant Description [employer] Description:Device Manufactu rer - [employer]. Body Location - Other. Left. Device Status Text - [id number] [id number]. Zim. Shell Tril W Holes 54 - [place] [id number] Implanted:Qty: 1 on 01/29/2011 Hip Implant Other/Legacy - See Implant Description [employer] Description:Device Manufactu rer - [employer]. Body Location - Other. Left. Device Status Text - HIP [id number]. J J Articul Tomás Head 36 + 8.5 - [place] [id number] Implanted:Qty: 1 on 01/29/2011 Hip Implant Other/Legacy - See Implant Description [employer] Description:Device Manufactu rer - [employer]. Body Location - Other. Left. Device Status Text - HIP [id number]. Zim-Liner Poly Xlpe 0 Deg 36x50 - [place] [id number] Implanted:Qty: 1 on 11/27/2013 Hip Implant Other/Legacy - See Implant Description [employer] Description:Device Manufactu rer - [employer]. Body Location - Other. Right. Device Status Text - HIP [id number]. [place]-Stem Morales 5 Hi - [place] [id number] Implanted:Qty: 1 on 11/27/2013 Hip Implant Other/Legacy - See Implant Description [employer] Description:Device Manufactu rer - [employer]. Body Location - Other. Right. Device Status Text - HIP [id number]. Zim. Shell Tril W Holes 54 - [place] [id number] Implanted:Qty: 1 on 11/27/2013 Hip Implant Other/Legacy - See Implant Description [employer] Description:Device Manufactu rer - [employer]. Body Location - Other. Right. Device Status Text - HIP [id number]. Delta-Head Ts Ceramic 36mm +12 - [place] [id number] Implanted:Qty: 1 on 05/04/2016 Hip Implant Other/Legacy - See Implant Description [employer] Description:Device Manufactu rer - [employer]. Body Location - Other. Right. Device Status Text - [id number] [id number]. Depuy-Tib Tray Mod Cement Cocr Sz3 - [place] [id number] Implanted:Qty: 1 on 10/25/2011 Knee Implant Other/Legacy - See Implant Description [employer] Description:Device Manufactu rer - [employer]. Body Location - Other. Left. Device Status Text - KNEE [id number]. Sigma Post Stab.W Lug Fem Sz 3 Lt - [place] [id number] Implanted:Qty: 1 on 10/25/2011 Knee Implant Other/Legacy - See Implant Description [employer] Description:Device Manufactu rer - [employer]. Body Location - Other. Left. Device Status Text - KNEE [id number]. Depuy-Insert Stabilized Sz 3 10mm - [place] [id number] Implanted:Qty: 1 on 10/25/2011 Knee Implant Other/Legacy - See Implant Description [employer] Description:Device Manufactu rer - [employer]. Body Location - Other. Left. Device Status Text - KNEE [id number]. J J Patella Rev Round 35m - [place] [id number] Implanted:Qty: 1 on 10/25/2011 Knee Implant Other/Legacy - See Implant Description [employer] Description:Device Manufactu rer - [employer]. Body Location - Other. Left. Device Status Text - KNEE [id number]. Depuy-Tib Tray Mod Cement Cocr Sz3 - [place] [id number] Implanted:Qty: 1 on 05/01/2012 Knee Implant Other/Legacy - See Implant Description [employer] Description:Device Manufactu rer - [employer]. Body Location - Other. Right. Device Status Text - KNEE [id number]. J J Patella Rev Round 35m - [place] [id number] Implanted:Qty: 1 on 05/01/2012 Knee Implant Other/Legacy - See Implant Description [employer] Description:Device Manufactu rer - [employer]. Body Location - Other. Right. Device Status Text - KNEE [id number]. Sigma Post Stab.W Lug Fem Sz 3 Rt - [place] [id number] Implanted:Qty: 1 on 05/01/2012 Knee Implant Other/Legacy - See Implant Description [employer] Description:Device Manufactu rer - [employer]. Body Location - Other. Right. Device Status Text - KNEE [id number]. Depuy-Insert Stabilized Sz 3 12.5mm - [place] [id number] Implanted:Qty: 1 on 05/01/2012 Knee Implant Other/Legacy - See Implant Description [employer] Description:Device Manufactu rer - [employer]. Body Location - Other. Right. Device Status Text - KNEE [id number]. Cement Bone Large - [place] [id number] Implanted:Qty: 2 on 10/25/2011 Mis Other [place] Description:Device Manufactu rer - [place] [employer].. Device Status Text - MISCOTHER-2840. Cement Bone Large - [place] 2840 Implanted:Qty: 2 on 05/01/2012 Misc Other [place] Description:Device Manufactu rer - [employer].. Device Status Text - MISCOTHER-2840. Ocular Lens Ocular Lens Right: Eye Electrode-Shoc k 1 - [place] [id number] Implanted:Qty: 2 on 04/17/1998 Urogenital Implant Unknown Description:Device Manufactu rer - Unknown. Device Status Text - UROGENITL-20570. Electrode-Shoc k 1 2 - [place] [id number] Implanted:Qty: 1 on 04/17/1998 Urogenital Implant Unknown Description:Device Manufactu rer - Unknown. Device Status Text - UROGENITL-86962. Explanted Type Area Industrial Green Systems Designer Device Identifier Shelf Expiration Date Model / Serial / Lot J J Articul Tomás Head 36 +12.0 - [place] [id number] Explanted:Qty: 1 on 05/04/2016 Hip Implant Other/Legacy - See Implant Description [employer] Description:Device Manufactu rer - J [employer]. Body Location - Other. Right. Device Status Text - HIP IMP-[id number]. Procedures Procedure Name Priority Date/Time Associated Diagnosis Comments DIPSTICK, U Routine 01/30/2025 11:47 AM CDT OSMOLALITY, U Routine 01/30/2025 11:47 AM CDT MICROSCOPIC AUTOMATED Routine 01/30/2025 11:47 AM CDT PH, U Routine 01/30/2025 11:47 AM CDT URINALYSIS WITH MICROSCOPIC Routine 01/30/2025 11:47 AM CDT Mass Kidney SODIUM, S/P Routine 01/30/2025 11:40 AM CDT Mass Kidney POTASSIUM, S/P Routine 01/30/2025 11:40 AM CDT Mass Kidney CREATININE WITH EGFR, S/P Routine 01/30/2025 11:40 AM CDT Mass Kidney CHLORIDE, S/P Routine 01/30/2025 11:40 AM CDT Mass Kidney CALCIUM, TOT, S/P Routine 01/30/2025 11:40 AM CDT Mass Kidney BUN (BLOOD UREA NITROGEN), S/P Routine 01/30/2025 11:40 AM CDT Mass Kidney BICARBONATE, B/S/P Routine 01/30/2025 11:40 AM CDT Mass Kidney CBC WITHOUT DIFFERENTIAL, B Routine 01/30/2025 11:40 AM CDT Mass Kidney ASPARTATE AMINOTRANSFERASE (AST), S/P Routine 01/30/2025 11:40 AM CDT Mass Kidney ALANINE AMINOTRANSFERASE (ALT), S/P Routine 01/30/2025 11:40 AM CDT Mass Kidney ALKALINE PHOSPHATASE, S/P Routine 01/30/2025 11:40 [address] CDT [address] CHEST WITH IV CONTRAST RAD - Routine (most inpatients and all outpatients) 01/08/2025 2:14 PM CDT Malignant Neoplasm Of Colon (HCC) CT ABDOMEN PELVIS WITH IV CONTRAST RAD - Routine (most inpatients and all outpatients) 01/08/2025 2:14 PM CDT Malignant Neoplasm Of Colon (HCC) ALKALINE PHOSPHATASE, S/P Routine 01/08/2025 11:48 AM CDT Malignant Neoplasm Of Colon (HCC) ASPARTATE AMINOTRANSFERASE (AST), S/P Routine 01/08/2025 11:48 AM CDT Malignant Neoplasm Of Colon (HCC) BILIRUBIN, TOT, S/P Routine 01/08/2025 11:48 AM CDT Malignant Neoplasm Of Colon (HCC) BASIC METABOLIC PANEL, S/P Routine 01/08/2025 11:48 AM CDT Malignant Neoplasm Of Colon (HCC) CBC WITH DIFFERENTIAL, B Routine 01/08/2025 11:48 AM CDT Malignant Neoplasm Of Colon (HCC) LA SHIVANI PST VOID RESID US NON IMG Routine 11/29/2024 12:30 PM CDT Benign Prostatic Hyperplasia Hypertrophy With Obstruction LA UROFLOWMETRY CMPLX Routine 11/29/2024 12:30 PM CDT Benign Prostatic Hyperplasia Hypertrophy With Obstruction COLONOSCOPY Routine 03/17/2023 3:34 PM CDT Malignant Neoplasm Of Colon (HCC) HEMOGLOBIN A1C, B Routine 09/07/2019 6:1 4 AM HUMAN RESOURCE MANAGER from Last 3 Months or Most Recently Relevant to Health Maintenance Results * (ABNORMAL) Dipstick, Urine (01/30/2025 11:47 [...] M.D. LAB URINE ORDERABLES Dariana l Result [facility] [address] [place] [address] * Microscopic Automated (01/30/2025 11:47 AM CDT) Microscopy Normal 01/30/2025 1:30 PM CDT DTL RBC None Seen <3 /hpf 01/30/2025 1:30 PM CDT DTL WBC None Seen /hpf 01/30/2025 1:30 PM CDT DTL Comment: ----REFERENCE VALUE---- <4 (Males) <11 (Females) Urine 01/30/2025 11:4 7 AM CDT 01/30/2025 12:59 PM CDT us Juve Ocampo M.D. LAB URINE ORDERABLES Dariana l Result Performing Organization Address City/[facility]/ZIP Co de Phone Number [facility] [address] [place] [address] * pH, Urine (01/30/2025 11:47 AM CDT) pH, U 5.2 4.5 - 8.0 01/30/2025 1:5 1 PM CDT DTL Urine 01/30/2025 11:4 7 AM CDT 01/30/2025 12:59 PM CDT us Juve Ocampo M.D. LAB URINE ORDERABLES Dariana l Result [facility] [address] [facility] [address] [place] [address] * Osmolality, Urine (01/30/2025 11:47 AM CDT) Osmolality, U 711 150 - 1150 mOsm/kg 01/30/2025 1:51 PM CDT DTL Urine 01/30/2025 11:4 7 AM CDT 01/30/2025 12:59 PM CDT Juve Ocampo M.D. LAB URINE ORDERABLES Dariana l Result [facility] [address] [place] [address], [facility] DTL [facility] [address] [place] [address] * Urinalysis, with Microscopic: Urine, Midstream (01/30/2025 [...] M.D. LAB URINE ORDERABLES Dariana l Result [facility] [address] [place] [address], [place] DTL [facility] [address] [place] [address] * CBC without Differential (01/30/2025 11:40 AM [...] ADD-ON Final Re sult Performing Organization Address [facility] Co de Phone Number [facility] [address] [place] [address], [facility] [address] [place] [address] * (ABNORMAL) BUN (Blood Urea Nitrogen) (01/30/2025 11:40 AM CDT) BUN (Blood Urea Nitrogen), S 25(H) 8 - 24 mg/dL 01/30/2025 12:51 PM CDT DTL Blood (Blood, Venous) 01/30/2025 11:40 AM CDT 01/30/2025 12:25 PM CDT us Juve Ocampo M.D. LAB BLOOD ADD-ON Final Re sult [facility] [address] [place] [address], [facility]3] [address] [place] [address] * ALT (Alanine Aminotransferase) (01/30/2025 11:40 AM CDT) Alanine Aminotransferase (ALT), S 26 7 - 55 U/L 01/30/2025 12:51 PM CDT DTL Blood (Blood, Venous) 01/30/2025 11:40 AM CDT 01/30/2025 12:25 PM CDT Juve Ocampo M.D. LAB BLOOD ADD-ON Final Re sult Performing Organization Address [facility] Co de Phone Number [facility] [address] [place] [address], [facility]3] [address] [place] [address] * AST (Aspartate Aminotransferase) (01/30/2025 11:40 AM CDT) Only the most recent of2 resultswithin the time period is included. Aspartate Aminotransferase (AST), S 22 8 - 48 U/L 01/30/2025 12:51 PM CDT DT Blood (Blood, Venous) 01/30/2025 11:40 AM CDT 01/30/2025 12:25 PM CDT us Juve Ocampo M.D. LAB BLOOD ADD-ON Final Re sult Performing Organization Address City/[facility] Co de Phone Number [facility] [address] [place] [address], [facility]3] [address] [place] [address] * Sodium (01/30/2025 11:40 AM CDT) Sodium, S 141 135 - 145 mmol/L 01/30/2025 12:51 PM CDT DTL Blood (Blood, Venous) 01/30/2025 11:40 AM CDT 01/30/2025 12:25 PM CDT Juve Ocampo M.D. LAB BLOOD ADD-ON Final Re sult Performing Organization Address City/[facility]/ZIP Co de Phone Number [facility] [address] [place] [address] * Potassium (01/30/2025 11:40 AM CDT) Potassium, S 4.7 3.6 - 5.2 mmol/L 01/30/2025 12:51 PM CDT DTL Blood (Blood, Venous) 01/30/2025 11:40 AM CDT 01/30/2025 12:25 PM CDT Juve Ocampo M.D. LAB BLOOD ADD-ON Final Re sult Performing Organization Address City/[facility] Co de Phone Number [facility] [address] [place] [address] * Alkaline Phosphatase (01/30/2025 11:40 AM CDT) Only the most recent of2 resultswithin the time period is included. Alkaline Phosphatase, S 103 40 - 129 U/L 01/30/2025 12:51 PM CDT DTL Blood (Blood, Venous) 01/30/2025 11:40 AM CDT 01/30/2025 12:25 PM CDT Juve Ocampo M.D. LAB BLOOD ADD-ON Final Re sult [facility] [address] [place] [address] * Creatinine with Estimated GFR (01/30/2025 11:40 AM CDT) Creatinine 0.97 0.74 - 1.35 mg/dL 01/30/2025 12:51 PM CDT DTL Estimated GFR (eGFR) 77 >=60 mL/min/BSA 01/30/2025 12:51 PM CDT DTL Comment: Estimated GFR calculated using the 2020 CKD_EPI creatinine equation. Blood (Blood, Venous) 01/30/2025 11:40 AM CDT 01/30/2025 12:25 PM CDT us Juve Ocampo M.D. LAB BLOOD ADD-ON Final Re sult [facility] [address] [place] [address] * Chloride (01/30/2025 11:40 AM CDT) Pathologist [facility] Chloride, S 104 98 - 107 mmol/L 01/30/2025 12:51 PM CDT DT Blood (Blood, Venous) 01/30/2025 11:40 AM CDT 01/30/2025 12:25 PM CDT us Juve Ocampo M.D. LAB BLOOD ADD-ON Final Re sult [facility] [address] [place] [address] * Bicarbonate (01/30/2025 11:40 AM CDT) Bicarbonate, S 25 22 - 29 mmol/L 01/30/2025 12:51 PM CDT DT Blood (Blood, Venous) 01/30/2025 11:40 AM CDT 01/30/2025 12:25 PM CDT us Juve Ocampo M.D. LAB BLOOD ADD-ON Final Re sult Performing Organization Address City/[facility]/[place] [address] * Calcium, Total (01/30/2025 11:40 AM CDT) Calcium, Total, S 9.3 8.8 - 10.2 mg/dL 01/30/2025 12:51 PM CDT DTL Blood (Blood, Venous) 01/30/2025 11:40 AM CDT 01/30/2025 12:25 PM CDT us Juve Ocampo M.D. LAB BLOOD ADD-ON Final Re sult Performing Organization Address [facility] [place] [address] * CT Abdomen Pelvis with IV Contrast [...] on subsequent examinations. us Juve Ocampo M.D. 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 us Juve Ocampo M.D. IMG CT PROCEDURES Final R esult * CBC with Differential, Blood (01/08/2025 11:48 [...] 11:48 AM CDT 01/08/2025 12:13 PM CDT Juve Ocampo M.D. LAB BLOOD ADD-ON Final Re sult Performing Organization Address City/[facility]/ZIP Co de Phone Number [facility] [address] [facility] 200 [place], [place] [id number] [place] [address] 200 [place] [address] * Bilirubin, Total (01/08/2025 11:48 AM CDT) Bilirubin, Total, S 0.5 0.0 - 1.2 mg/dL 01/08/2025 1:02 PM CDT DTL Blood (Blood, Venous) 01/08/2025 11:48 AM CDT 01/08/2025 12:43 PM CDT us Juve Ocampo M.D. LAB BLOOD ADD-ON Final Re sult Performing Organization Address [facility]/ZIP Co de Phone Number [facility] 200 [place], [place] [id number] [place] [address] * (ABNORMAL) Basic Metabolic Panel (01/08/2025 11:48 [...] M.D. LAB BLOOD ADD-ON Final Re sult [facility] 200 [place] [address], [facility] 200 [place] [address] * LA UROFLOWMETRY CMPLX, LA SHIVANI PST VOID RESID US NON IMG (11/29/2024 12:30 PM CDT) Narrative Ladarius Walker M.D. - 11/29/2024 12:30 PM CDT Ladarius Walker M.D. 12/05/2024 12:33 PM URO Uroflow Performed by: Darlene Sen RChantelMChantelAChantel Authorized by: Farzad Rosenbaum M.D. Care team members present 1. Darlene Sen R.MHelio PROCEDURE DETAILS Calibrated electronic equipment used. Total voided volume (mL): 230 Peak flow (mL/seconds): 30 Average flow (mL/seconds): 12 Voiding time (seconds): 19 Flow pattern: continuous smooth (Patient reports slow stream which is not typical for him. He also had some leakage of urine prior to starting the procedure which missed to collection container.) Residual urine (mL): 89 Measured by: ultrasound Impression: Normal variant uroflow. CONSENT Consent obtained: verbal Consent given by: patient The benefits, risks and alternatives to the procedure and the potential need for sedation or anesthesia as well as the names, roles, and responsibilities of healthcare team members performing significant interventional tasks were discussed with the patient and/or decision maker. [employer] All relevant documentation and testing were reviewed and available. All required blood products, implants, devices and or special equipment were made available as applicable. Pre-procedure verification was conducted and the correct site was marked if required. A fire risk and smoke assessment were done as applicable. The procedural time-out to verify correct patient, correct side/site, and procedure was conducted prior to performing the procedure and confirmed in a procedural pause. PRE-PROCEDURE DETAILS Procedure purpose: diagnostic Indications: BPH Appropriate hand hygiene, gown, cap, mask, protective eyewear, sterile gloves, skin preparation, sterile drape, and strict aseptic technique were utilized as applicable for the procedure.: yes POST-PROCEDURE DETAILS Patient tolerance of procedure: successful Complications: no apparent complications COMMENTS Adequate voided volume for interpretation. Good peak flow indicates lack of bladder outlet obstruction and satisfactory detrusor activity. Slightly elevated PVR. See office visit 12/05/2024 for clinical correlation. us Farzad Rosenbaum M.D. UROLOGY ORDERABLES Edited R esult - Final * Colonoscopy (03/17/2023 3:34 PM CDT) 03/17/2023 3:34 PM CDT [facility] 4:26 PM CDT Post-op Diagnoses: - The examined portion of the daphnie terminal ileum was normal. - Patent functional end-to-end ileo-colonic anastomosis, characterized by healthy appearing mucosa. - One 1 mm polyp in the proximal descending colon, removed with a cold biopsy forceps. Resected and retrieved. - The examination was otherwise normal on direct and retroflexion views. Narrative [facility] - 03/17/2023 4:26 PM CDT [facility] GI Patient Name: Fernando José Date of : 1940 Age: 82 Gender: Male Procedure Date: 03/17/2023 Procedure: Colonoscopy Providers: Leopoldo Quintero MD Referring Provider: Juve Ocampo MD Pre-op Diagnoses: High risk colon cancer surveillance: Personal history of colon cancer, Incidental - Follow-up of colorectal cancer Recommendation: - The patient will be observed post-procedure, until all discharge criteria are met. - Await pathology results. Referring team to follow up results. - Findings discussed with patient Findings: The daphnie-terminal ileum appeared normal. There was evidence of a prior functional end-to-end ileo-colonic anastomosis in the proximal descending colon. This was patent and was characterized by healthy appearing mucosa. The anastomosis was traversed. A 1 mm polyp was found in the proximal descending colon. The polyp was sessile. The polyp was removed with a cold biopsy forceps. Resection and retrieval were complete. The exam was otherwise without abnormality on direct and retroflexion views. Procedural Details: The patient was seen, evaluated, history reviewed, airway and heart-lung exams were performed by licensed provider and were satisfactory for planned level of sedation care. The risks, benefits and alternatives for the procedure and sedation were discussed and informed consent was obtained. A procedural pause was conducted in the presence of assisting personnel to verify the correct patient identity and procedure to be performed. Throughout the procedure, the patient's blood pressure, pulse, and oxygen saturations were monitored continuously. The Pediatric Colonoscope was introduced through the anus and advanced to the 10 cm into the ileum. The colonoscopy was performed without difficulty. The patient tolerated the procedure fairly well. The quality of the bowel preparation was evaluated using the BBPS (Solon Bowel Preparation Scale) with scores of: Right Colon = NA (segment surgically absent or not seen due to reasons unrelated to bowel prep (i.e. technical difficulties or patient intolerance)), Transverse Colon = 2 (minor amount of residual staining, small fragments of stool and/or opaque liquid, but mucosa seen well) and Left Colon = 2 (minor amount of residual staining, small fragments of stool and/or opaque liquid, but mucosa seen well). The total BBPS score equals 4* (*this score is the summation of 2 or fewer segments). The quality of the bowel preparation was adequate. Complications: No immediate complications. Estimated Blood Loss: Estimated blood loss: none. Attending Participation: I personally performed the entire procedure. Leopoldo Quintero MD 03/17/2023 4:21:46 PM This report has been signed electronically. Number of Addenda: 0 Note Initiated On: 03/17/2023 3:34 PM us Juve Ocampo M.D. GI PROCEDURE ORDERABLES E dited Result - Final Performing Organization Address [facility] Co de Phone Number EUSEBIO GOMEZ NA * (ABNORMAL) Hemoglobin A1c (09/07/2019 6:14 AM HUMAN RESOURCE MANAGER) Hemoglobin A1c, B 7.4(H) 4.0 - 5.6 % 09/07/2019 7:06 AM HUMAN RESOURCE MANAGER DTL Comment: Hemoglobin A1c values greater than or equal to 6.5 percent are diagnostic for diabetes mellitus. Diagnosis should be confirmed by repeat testing. In diabetic patients, HbA1c goals should be discussed with healthcare provider. Blood (Blood, Venous) 09/07/2019 6:14 AM HUMAN RESOURCE MANAGER 09/07/2019 6:44 AM HUMAN RESOURCE MANAGER Phuong Husain P.A.-C., M.S. LAB BLOOD ADD-ON Fi nal Result Performing Organization Address [facility] Co de Phone Number [facility] [address] DTL [facility] [address] [place] [address] from Last 3 Months or Most Recently Relevant to Health Maintenance Additional Health Concerns Infection Onset Date Last Indicated Protective Environment 11/12/2022 3 Insurance [facility] Advance Directives For more information, please contact: [phone] * Full Code (Latest Code Status on File) Date Activated Date Inactivated Comments 10/08/2019 8:46 PM 10/11/2019 5:57 PM Question Answer Comments Full Code: Discussed * Full Code Date Activated Date Inactivated Comments 10/08/2019 9:26 AM 10/08/2019 8:46 PM Question Answer Comments Full Code: Discussed * DNR/DNI Date Activated Date Inactivated Comments 09/11/2019 1:42 AM 09/11/2019 3:47 PM * Full Code Date Activated Date Inactivated Comments 09/10/2019 8:03 AM 09/11/2019 1:42 AM Question Answer Comments Full Code: Discussed * DNR/DNI Date Activated Date Inactivated Comments 09/06/2019 5:43 PM 09/10/2019 8:03 AM
--- OUTSIDE RECORDS SUMMARY | 2025-02-17 20:01 | XMS_ITS | Encounter Summary ---
Author Organization [facility] Address [address] [place] [address] Care Team Providers Care Solid Tire Finisher Name Role Phone Elsewhere, Pcp Primary Care Provider Unavailabl e Reason for Visit * Reason Onset Date Comments Order Request 12/03/2024 Encounter Details Date Type Department Care Team (Late st Contact Info) Description 12/03/2024 Clinical Communication Department of Urology in [place], [place] [address] [place] [phone] Ladarius Walker M.D. [address] [place] [phone] Order Request Social History Tobacco Use Types Packs/Day Years Used Date Smoking Tobacco: Never Smokeless Tobacco: Never Alcohol Use Standard Drinks/Week Comments Yes 1 (1 standard drink = 0.6 oz pur e alcohol) one beer a week [facility] Utilities Answer Date Recorded In the past 12 months has [employer] electric, gas, oil, or water company threatened [...] your living situation today? I have a [facility] place to live 12/02/2024 Sex and Gender Information Value Date Recorded Sex Assigned at Male 09/25/2019 4:40 PM PROGRAM SERVICES ASSISTANT Legal Sex Male 11:17 AM PROGRAM SERVICES ASSISTANT Gender Identity Male 09/25/2019 4:40 PM PROGRAM SERVICES ASSISTANT Sexual Orientation Not on file documented as of this encounter Plan of Treatment Not on file documented as of this encounter Visit Diagnoses Not on filedocumented in this encounter Additional Health Concerns Infection Onset Date Last Indicated Resolved Time Protective Environment 11/12/2022 11/12/2022 documented as of this encounter Care Teams Solid Tire Finisher Relationship Specialty Start Date End Date Elsewhere, Pcp PCP - General Beta Tester 09/07/19 01/06/25 documented as of this encounter
--- OUTSIDE RECORDS SUMMARY | 2025-02-17 20:01 | XMS_ITS | Encounter Summary ---
Author Organization [facility] Address [address] [place] [id number] Care Team Providers Care Residential Caregiver Name Role Phone Elsewhere, Pcp Primary Care Provider Unavailabl e Encounter Details Date Type Department Care Team (Late st Contact Info) Description 07/14/2023 Orders Only Department of Urology in [place], [place] [address] [place] [phone] [facility], Provider, Benign Prostatic Hyperplasia Hypertrophy With Obstruction Social History Tobacco Use Types Packs/Day Years Used Date Smoking Tobacco: Never Smokeless Tobacco: Never Alcohol Use Standard Drinks/Week Comments Yes 1 (1 standard drink = 0.6 oz pur e alcohol) one beer a week Sex and Gender Information Value Date Recorded Sex Assigned at Male 09/25/2019 4:40 PM COMPUTING MACHINE OPERATOR Legal Sex Male 11:17 AM COMPUTING MACHINE OPERATOR Gender Identity Male 09/25/2019 4:40 PM COMPUTING MACHINE OPERATOR Sexual Orientation Not on file documented as of this encounter Plan of Treatment Not on file documented as of this encounter Results * (ABNORMAL) Urinalysis with Microscopic: Urine, Midstream (07/20/2023 11:28 AM COMPUTING MACHINE OPERATOR) Source Urine, Urine, Midstream 07/20/2023 11:52 AM COMPUTING MACHINE OPERATOR DTL Color, U Yellow 07/20/2023 11:52 AM COMPUTING MACHINE OPERATOR DTL Clarity, U Cloudy(A) 07/20/2023 11:52 AM COMPUTING MACHINE OPERATOR DTL Protein, U 52(H) <26 mg/dL 07/20/2023 12:55 PM COMPUTING MACHINE OPERATOR DTL Protein/Osmol ality 0.67(H) <0.42 ratio 07/20/2023 12:55 PM COMPUTING MACHINE OPERATOR DTL Predicted 24 HR Protein, U 641(H) <229 mg/24 h 07/20/2023 12:55 PM COMPUTING MACHINE OPERATOR DTL Predicted Range 204-2021 mg/24 h 07/20/2023 12:55 PM COMPUTING MACHINE OPERATOR DTL Urine (Urine, Midstream) 07/20/2023 11:28 AM COMPUTING MACHINE OPERATOR 07/20/2023 11:52 AM COMPUTING MACHINE OPERATOR Renee Glass P.A.-C. LAB URINE ORDERABLES Fin al Result Performing Organization Address [facility] de Phone Number [facility] [address] [place] [address], [facility] [place] [address] [place] [address] * (ABNORMAL) PSA (Prostate-Specific Antigen), Diagnostic (07/20/2023 11:23 AM COMPUTING MACHINE OPERATOR) Prostate-Specific Ag 7.8(H) <=7.2 ng/mL 07/20/2023 12:38 PM COMPUTING MACHINE OPERATOR DTL Comment: ----ADDITIONAL INFORMATION---- The testing method is an electrochemiluminescence assay manufactured by [employer] and performed on the Modular or Kavon system. Values obtained with different assay methods or kits may be different and cannot be used interchangeably. Test results cannot be interpreted as absolute evidence for the presence or absence of malignant disease. Blood (Blood, Venous) 07/20/2023 11:23 AM COMPUTING MACHINE OPERATOR 07/20/2023 12:04 PM COMPUTING MACHINE OPERATOR us Renee Glass P.A.-C. LAB BLOOD ADD-ON Final R esult Performing Organization Address [facility] Co de Phone Number [facility] [address] [place] [address], [place] [facility] [facility] [place] [address] [place] [address] documented in this encounter Visit Diagnoses Diagnosis Benign Prostatic Hyperplasia Hypertrophy With Obstruction documented in this encounter Additional Health Concerns Infection Onset Date Last Indicated Resolved Time Protective Environment 11/12/2022 11/12/2022 documented as of this encounter Care Teams Residential Caregiver Relationship Specialty Start Date End Date Elsewhere, Pcp PCP - General Electrologist 09/07/19 01/06/25 documented as of this encounter
[2025-02-17 20:10] LABS: Albumin* 4.2 g/dL (3.3-5.0); Chloride* 108 mmol/L (96-114); Potassium* 4.2 mmol/L (3.6-5.1); Sodium* 139 mmol/L (135-149)
[2025-02-17 20:13] LABS: Alanine Aminotransferase* 29 U/L (4-50); Alkaline Phosphatase* 88 U/L (40-150); Anion Gap 7 mEq/L (7-15); Aspartate Amino Transferase* 27 U/L (12-35); Bilirubin Total* 0.3 mg/dL (0.1-1.5); Blood Urea Nitrogen* 29 mg/dL (7-30); Carbon Dioxide* 24 mmol/L (20-32); Creatinine* 0.9 mg/dL (0.5-1.5); Est. Creatinine Clearance* 55.97; Estimated Glomerular Filt Rate 85 ml/min; Total Protein* 7.0 g/dL (6.0-8.3)
[2025-02-17 20:14] LABS: Calcium* 9.2 mg/dL (8.4-10.6); Glucose* 183 mg/dL (60-115)
[2025-02-17 20:24] LABS: INR 0.92 (0.91-1.10); Prothrombin Time 13.1 Seconds
[2025-02-17] MEDS: PANTOPRAZOLE SODIUM 40 MG INJ IVP (21:23)
[2025-02-17 21:35] LABS: Hemoglobin* 12.5 gm/dL (13.5-17.5)
--- NOTE | 2025-02-17 23:31 | PM.IMHP1 ---
Assessment and Plan Assessment and plan (1) Melena: Problem comment: Monitor for ongoing bleeding, monitor vital signs, serial hemoglobins, symptoms. EGD, Protonix. Consider CT abdomen with contrast if ongoing significant bleeding. Transfuse as need. Status: Acute (2) History of atrial fibrillation: Problem comment: Hx Watchman device. On dual antiplatelet therapy. Temporary hold on Plavix and aspirin with active bleeding. Consult [facility] depending on clinical course Status: Acute (3) KYRA (obstructive sleep apnea): Problem comment: Home CPAP Status: Chronic (4) Type 2 diabetes mellitus: Problem comment: Hold oral hypoglycemics. Sliding scale insulin while NPO Status: Chronic (5) Essential hypertension: Problem comment: Hold antihypertensives pending clinical course Status: Chronic (6) History of colon cancer: Problem comment: [id number] transverse colon resected 10/08/11. Clear since. Negative colonoscopy in November 2023. Status: Acute Plan 84-year-old male with melanotic and now dark red bleeding per rectum. Admit for monitoring and evaluation and treatment of GI bleeding. Also monitor and manage heart disease, hypertension, diabetes in the context of GI bleeding. Total Time Spent Total Time Spent: Total time spent today is 80 minutes in coordination of care and discussing with patient, and other providers management of GI bleeding. Hospitalist- H&P: HPI History of Present Illness Date Seen: 02/17/25 Chief complaint: alot of blood in stool Narrative: Fernando José is a 84 year old male with history of colon resection for colon cancer on Plavix and aspirin admitted to the hospital for melanotic diarrhea starting this afternoon. Patient reports he was feeling fine until this afternoon when he when out to eat and had black diarrhea. There was slight red tinge to it. He went home and it occurred again. Because of this he came to the emergency room. There is hemoglobin was 14.3 and his vitals were stable. He has a history of colon cancer with partial colon resection 4 or 5 years ago at [facility]. Apparently had 2 positive lymph nodes. He declined chemo and radiation after surgery. Subsequent surveillance has show no recurrence. Most recent colonoscopy was November of 2023 and apparently normal. He has atrial fibrillation and had a Watchman procedure in December of 2024 at [facility]. He was told to take aspirin and Plavix for 6 months after the procedure. He has had a previous non STEMI but no coronary stenting. He has no history of GI bleeding except for his original colon cancer was associated with anemia requiring transfusion of 3 units of blood. He reports otherwise feeling well without abdominal pain, fever, lightheadedness, dyspnea or other gastrointestinal symptoms. Review of Systems Narrative: Negative except as noted above Medical Decision Making Medical Decision Making Has patient completed a Health Care Directive: Yes PFSH PFSH Medical History History of non-ST elevation myocardial infarction (NSTEMI) ?I25.2 - Old myocardial infarction (ICD-10) History of kidney stones ?Z87.442 - Personal history of urinary calculi (ICD-10) History of atrial fibrillation ?Z86.79 - Personal history of other diseases of the circulatory system (ICD-10) Renal cyst ?N28.1 - Cyst of kidney, acquired (ICD-10) History of colon cancer ?Z85.038 - Personal history of other malignant neoplasm of large intestine (ICD-10) KYRA (obstructive sleep apnea) ?G47.33 - Obstructive sleep apnea (adult) (pediatric) (ICD-10) Morbid obesity ?E66.01 - Morbid (severe) obesity due to excess calories (ICD-10) Type 2 diabetes mellitus ?E11.9 - Type 2 diabetes mellitus without complications (ICD-10) Hyperlipidemia ?E78.5 - Hyperlipidemia, unspecified (ICD-10) Essential hypertension ?I10 - Essential (primary) hypertension (ICD-10) BPH (benign prostatic hyperplasia) ?N40.0 - Benign prostatic hyperplasia without lower urinary tract symptoms (ICD-10) Surgical History Status post total knee replacement, bilateral (2011) ?Z96.653 - Presence of artificial knee joint, bilateral (ICD-10) History of total right hip arthroplasty ?Z96.641 - Presence of right artificial hip joint (ICD-10) History of prostate surgery (09/05/23) ?Z98.890 - Other specified postprocedural states (ICD-10) Presence of Watchman left atrial appendage closure device ?Z95.818 - Presence of other cardiac implants and grafts (ICD-10) History of colon resection (10/08/11) ?Z90.49 - Acquired absence of other specified parts of digestive tract (ICD-10) Social History (Updated 02/17/25 @ 23:38 by Gagandeep Dorsey MD) Narrative: He has recently moved from [place] to [place] where he lives with his , Kyra. She is healthcare power of trust and estates attorney. Code status is DNR. He does not smoke. He drinks about 1 beer per week. What is your current living situation?: I presently have a place to live Problems where you live: no known problems Problems where you live details: none In the past 12 months, utilities in danger of being shut off: no In past 12 months, lack of transportation kept you from medical appts, meetings, work, or getting things needed for daily living: no In the past 12 mos, have been you worried that your food would run out before you had money to buy more?: never true In the past 12 mos, the food you bought just didn't last and you didn't have money to buy more?: never true Highest level of school completed/degree received: Master's degree Smoking Status: Never smoker Second hand tobacco smoke exposure: No How often do you have a drink containing alcohol: monthly or less Alcohol type: beer AUDIT-C Alcohol total score: 1 Non-prescribed substance use: denies use Caffeine: No How often does anyone, including family, friends and others, physically hurt you: never How often does anyone, including family, friends and others, insult or talk down to you: never How often does anyone, including family, friends and others, threaten you with harm: never How often does anyone, including family, friends and others, scream or curse at you: never Meds Home Medications and Allergies Home Medications ?Medication ?Instructions ?Recorded ?Confirmed ?Type amlodipine 5 mg tablet 5 mg PO QAM 02/07/25 02/07/25 History aspirin 81 mg tablet 81 mg PO QDAY 02/07/25 02/07/25 History atorvastatin 10 mg tablet 10 mg PO QDAY 02/07/25 02/07/25 History cholecalciferol (vitamin D3) 25 25 mcg PO QDAY 02/07/25 02/07/25 History mcg (1,000 unit) capsule clopidogrel 75 mg tablet 75 mg PO QDAY 02/07/25 02/07/25 History empagliflozin 10 mg tablet 10 mg PO QAM 02/07/25 02/07/25 History (Jardiance) hydrochlorothiazide 12.5 mg tablet 12.5 mg PO QAM 02/07/25 02/07/25 History lisinopril 5 mg tablet 5 mg PO QAM 02/07/25 02/07/25 History mecobalamin (vitamin B12) 1,000 1,000 mcg PO QDAY 02/07/25 02/07/25 History mcg lozenges metformin 500 mg tablet 1,000 mg PO QDAY 02/07/25 02/07/25 History mv-mn-folic 200 mcg-vit K 15 cap PO 02/07/25 02/07/25 History mcg-lutein 5 mg-zeaxanthin 1 mg capsule (PreserVision AREDS 2 Plus Multivit) Allergies Allergy/AdvReac Type Severity Reaction Status Date / Time bee venom protein (honey bee) Allergy Intermediate edema Verified 02/07/25 10:11 oxycodone Allergy Unknown Hallucinati Verified 02/07/25 10:11 ng Exam Narrative: Exam Narrative: He is alert and appears in no distress. Oropharynx with small airway. Respirations are clear to auscultation. Cardiovascular: S1, S2, 2/6 systolic murmur. Regular rate and rhythm. Abdomen is soft without tenderness or mass. Bowel sounds are active. Extremities with trace edema. Good perfusion of all 4 extremities. Const: Vital Signs, click to edit/add: Vital Signs - 24 hr 02/17/25 19:11 02/17/25 19:40 02/17/25 20:02 Temperature 98.1 F Pulse Rate 68 Pulse Rate [Left P ulse Oximeter] Pulse Rate [Right Radial] 104 H Respiratory Rate 18 16 Blood Pressure 115/67 Blood Pressure [Le ft Arm] Blood Pressure [Ri ght Upper Arm] 131/67 Pulse Oximetry 97 97 96 Oxygen Delivery Me thod Room Air 02/17/25 20:22 02/17/25 20:41 02/17/25 21:02 Temperature 98.0 F Pulse Rate 68 66 68 Pulse Rate [Left P ulse Oximeter] Pulse Rate [Right Radial] Respiratory Rate 18 18 18 Blood Pressure 130/67 127/65 120/56 L Blood Pressure [Le ft Arm] Blood Pressure [Ri ght Upper Arm] Pulse Oximetry 95 95 97 Oxygen Delivery Me thod 02/17/25 21:21 02/17/25 21:41 02/17/25 21:51 Temperature 98.0 F Pulse Rate 70 63 Pulse Rate [Left P ulse Oximeter] Pulse Rate [Right Radial] 85 Respiratory Rate 18 13 13 Blood Pressure 127/65 110/55 L Blood Pressure [Le ft Arm] Blood Pressure [Ri ght Upper Arm] 112/65 Pulse Oximetry 93 94 94 Oxygen Delivery Me thod Room Air 02/17/25 21:53 02/17/25 23:17 02/17/25 23:17 Temperature 98.0 F 98.0 F Pulse Rate Pulse Rate [Left P ulse Oximeter] 67 Pulse Rate [Right Radial] 85 Respiratory Rate 13 16 Blood Pressure Blood Pressure [Le ft Arm] 156/76 H Blood Pressure [Ri ght Upper Arm] 112/65 Pulse Oximetry 97 Oxygen Delivery Me thod Room Air Room Air Documenting provider has reviewed patient's vital signs: yes Hospitalist - H&P: Result Labs Labs: Short CBC 02/17/25 02/17/25 Range/Units 19:32 21:28 WBC 10.47 (4.50-11.00) K/uL Hgb 14.3 12.5 L (13.5-17.5) gm/dL Hct 43.3 (37.0-53.0) % Plt Count 195 (140-440) K/uL BMP 02/17/25 19:32 Sodium 139 Potassium 4.2 Chloride 108 Carbon Dioxide 24 BUN 29 Creatinine 0.9 Glucose 183 H Calcium 9.2 Liver Function 02/17/25 Range/Units 19:32 Total Bilirubin 0.3 (0.1-1.5) mg/dL AST 27 (12-35) U/L ALT 29 (4-50) U/L Alkaline Phosphatase 88 (40-150) U/L Albumin 4.2 (3.3-5.0) g/dL ECG Attestation: I personally reviewed and interpreted this ECG as follows: (Normal sinus rhythm with a rate of 75, left axis deviation, -38 degrees) ECG interpretation date: 02/17/25
[2025-02-17 23:42] LABS: Hemoglobin* 14.0 gm/dL (13.5-17.5)
[2025-02-18] VITALS (7 sets, daily range): BP systolic 114–155; BP diastolic 60–80; PULSE 62–73; RESP 18; TEMP 36.4–37.6; O2SAT 97–98
[2025-02-18 06:10] LABS: Hematocrit 35.6 % (37.0-53.0); Hemoglobin* 11.6 gm/dL (13.5-17.5); Immature Granulocytes Abs Auto 0.01 K/uL (0.00-0.30); Immature Granulocytes Pct Auto 0.1 %; Lymphocytes Absolute Auto 1.87 K/uL (0.90-2.90); Mean Corpuscular HGB Conc 33 gm/dL (32-36); Mean Corpuscular Hemoglobin 29 pg (26-34); Mean Corpuscular Volume 90 fL (80-100); RDW Coefficient of Variation % 13.7 % (11.5-15.5); Red Blood Count 3.95 m/uL (4.30-5.90); Slide Review Reflex No; White Blood Count* 7.25 K/uL (4.50-11.00)
--- NOTE | 2025-02-18 06:44 | PC.NURSE ---
The patient is pleasant and cooperative with cares. Up [place]go, no symptoms with his GI bleed. VSS. 1 dark red stool this evening 500cc. Iv fluids infusing, EGD today. CPAP is worn overnight. Call light within reach. No reports of pain. Margarette DRAPER BSN
[2025-02-18] MEDS: LACTATED RINGERS 1000 ML 1,000 ML 125 ML IV ×2 (08:24)
--- NOTE | 2025-02-18 10:30 | P.ANES_ITS ---
Anesthesia Charges Start Date/Time Anesthesia Start Date: 02/18/25 Anesthesia Start Time: 10:12 Stop Date/Time Anesthesia Stop Date: 02/18/25 Anesthesia Stop Time: 10:30 Coding CPT Codes CPT Codes: ANES UPR GI NDSC PX NOS - 38682 ([id number]) P3 - PATIENT W/SEVERE SYS DISEASE, QZ - NEWS COPY EDITOR SVC W/O CHILD AND ADOLESCENT PSYCHIATRIST BY
--- NOTE | 2025-02-18 10:30 | W.ANESCHARGE ---
Anesthesia Charges Start Date/Time Anesthesia Start Date: 02/18/25 Anesthesia Start Time: 10:12 Stop Date/Time Anesthesia Stop Date: 02/18/25 Anesthesia Stop Time: 10:30 Coding CPT Codes CPT Codes: ANES UPR GI NDSC PX NOS - 01964 ([id number]) P3 - PATIENT W/SEVERE SYS DISEASE, QZ - CHRISTIAN SCIENCE NURSE SVC W/O POLICE INSPECTOR BY
[2025-02-18] MEDS: ATORVASTATIN CALCIUM 10 MG TABLET PO (11:30)
[2025-02-18] MEDS: PANTOPRAZOLE SODIUM 40 MG INJ IVP (11:30)
[2025-02-18] MEDS: SODIUM CHLORIDE 0.9 % (FLUSH) 10 ML SYRINGE 5 ML IVF ×2 (11:30→22:58)
--- NOTE | 2025-02-18 12:17 | PM.IMPN1 ---
Assessment and Plan Assessment and plan (1) Melena: Problem comment: Monitor for ongoing bleeding, monitor vital signs, serial hemoglobins, symptoms. Consider CT abdomen with contrast if ongoing significant bleeding. Transfuse as need Continue Protonix 02/18: Dark stool this morning. EGD without evidence of acute bleed. Resume clears. Continue to monitor for new or worsening symptoms. Possible discharge home as improves with outpatient follow-up at [facility] H pylori biopsy obtained, pending Hold aspirin and Plavix - likely source Status: Acute (2) History of atrial fibrillation: Problem comment: Hx Watchman device. On dual antiplatelet therapy. Temporary hold on Plavix and aspirin with active bleeding. Consult [facility] depending on clinical course Status: Acute (3) KYRA (obstructive sleep apnea): Problem comment: Home CPAP Status: Chronic (4) Type 2 diabetes mellitus: Problem comment: Hold oral hypoglycemics. Sliding scale insulin while NPO Status: Chronic (5) Essential hypertension: Problem comment: Hold antihypertensives pending clinical course Status: Chronic (6) History of colon cancer: Problem comment: [id number] transverse colon resected 10/08/11. Clear since. Negative colonoscopy in November 2023. Oncology follow-up January 2025 - cancer free Status: Acute Plan Plan for discharge if remains stable, melena improving. Will discuss with Cardiology for resumption/alternatives aspirin and apixaban. Total Time Spent Total Time Spent: Today I spent 45 minutes seeing the patient, reviewing Expanse and EPIC notes/diagnostics, discussing the care plan with our care time that includes social work, PT/OT, pharmacy, RT, [facility] and documenting my impressions and plan in the medical record. Subjective Date Seen: 02/18/25 Interval history: Patient is seen sitting up in a chair, at bedside. Reports feeling well. Has no complaints as he had none when he came in either. Denies headache or dizziness. Denies chest pain or shortness of breath. Remains afebrile. Denies nausea, vomiting, diarrhea. Did have a bowel movement earlier this morning that was still dark in color. No hematuria reported. Just had an EGD with Dr. Segura who reports no active bleed noted. Question diverticular bleed. Exam Narrative: Exam Narrative: PHYSICAL EXAM General: Pleasant, conversant, NAD HEENT: Normocephalic, atraumatic, sclera white, EOMI, oral mucosa moist Cardiovascular: RRR, S1S2. No pitting edema Pulmonary: CTA bilaterally without rhonchi, rales, expiratory wheezes. No dyspnea Abdominal: Soft, nondistended, NTTP Neurological: Alert, answering questions appropriately, cranial nerves intact, no focal findings Extremities: No gross joint deformity or swelling. AROMI. Neurovascularly intact Skin: Warm, dry. Const: Vital Signs, click to edit/add: Vital Signs - 24 hr 02/17/25 19:11 02/17/25 19:40 02/17/25 20:02 Temperature 98.1 F Pulse Rate 68 Pulse Rate [Left P ulse Oximeter] Pulse Rate [Right Radial] 104 H Respiratory Rate 18 16 Blood Pressure 115/67 Blood Pressure [Le ft Arm] Blood Pressure [Ri ght Arm] Blood Pressure [Ri ght Upper Arm] 131/67 Pulse Oximetry 97 97 96 Oxygen Delivery Me thod Room Air 02/17/25 20:22 02/17/25 20:41 02/17/25 21:02 Temperature 98.0 F Pulse Rate 68 66 68 Pulse Rate [Left P ulse Oximeter] Pulse Rate [Right Radial] Respiratory Rate 18 18 18 Blood Pressure 130/67 127/65 120/56 L Blood Pressure [Le ft Arm] Blood Pressure [Ri ght Arm] Blood Pressure [Ri ght Upper Arm] Pulse Oximetry 95 95 97 Oxygen Delivery Me thod 02/17/25 21:21 02/17/25 21:41 02/17/25 21:51 Temperature 98.0 F Pulse Rate 70 63 Pulse Rate [Left P ulse Oximeter] Pulse Rate [Right Radial] 85 Respiratory Rate 18 13 13 Blood Pressure 127/65 110/55 L Blood Pressure [Le ft Arm] Blood Pressure [Ri ght Arm] Blood Pressure [Ri ght Upper Arm] 112/65 Pulse Oximetry 93 94 94 Oxygen Delivery Me thod Room Air 02/17/25 21:53 02/17/25 23:17 02/17/25 23:17 Temperature 98.0 F 98.0 F Pulse Rate Pulse Rate [Left P ulse Oximeter] 67 Pulse Rate [Right Radial] 85 Respiratory Rate 13 16 Blood Pressure Blood Pressure [Le ft Arm] 156/76 H Blood Pressure [Ri ght Arm] Blood Pressure [Ri ght Upper Arm] 112/65 Pulse Oximetry 97 Oxygen Delivery Me thod Room Air Room Air 02/18/25 03:00 02/18/25 07:00 02/18/25 07:00 Temperature 98.2 F Pulse Rate 64 Pulse Rate [Left P ulse Oximeter] 68 Pulse Rate [Right Radial] Respiratory Rate 18 18 Blood Pressure Blood Pressure [Le ft Arm] Blood Pressure [Ri ght Arm] 128/73 Blood Pressure [Ri ght Upper Arm] Pulse Oximetry 97 Oxygen Delivery Me thod Room Air 02/18/25 08:00 Temperature 97.6 F Pulse Rate Pulse Rate [Left P ulse Oximeter] 66 Pulse Rate [Right Radial] Respiratory Rate 18 Blood Pressure Blood Pressure [Le ft Arm] Blood Pressure [Ri ght Arm] 114/60 Blood Pressure [Ri ght Upper Arm] Pulse Oximetry 97 Oxygen Delivery Me thod Room Air Labs Labs: Laboratory Results - last 24 hr 02/17/25 02/17/25 02/17/25 19:32 21:28 23:40 WBC 10.47 RBC 4.86 Hgb 14.3 12.5 L 14.0 Hct 43.3 MCV 89 MCH 29 MCHC 33 RDW Coeff of Steven 13.5 Plt Count 195 Neut % (Auto) 65.4 Lymph % (Auto) 24.6 [place] % (Auto) 6.2 Eos % (Auto) 3.2 Baso % (Auto) 0.4 Neut # (Auto) 6.85 Lymph # (Auto) 2.58 [place] # (Auto) 0.60 Eos # (Auto) 0.33 Baso # (Auto) 0.04 Abs Immat Gran (auto) 0.02 Imm/Tot Granulo (auto) 0.2 INR 0.92 APTT 29 Sodium 139 Potassium 4.2 Chloride 108 Carbon Dioxide 24 Anion Gap 7 BUN 29 Creatinine 0.9 Estimated Creat Clear 55.97 Estimated GFR 85 Glucose 183 H Calcium 9.2 Total Bilirubin 0.3 AST 27 ALT 29 Alkaline Phosphatase 88 C-Reactive Protein < 0.5 L Total Protein 7.0 Albumin 4.2 Blood Type B Positive Antibody Screen NEGATIVE 02/18/25 05:45 WBC 7.25 RBC 3.95 L Hgb 11.6 L Hct 35.6 L MCV 90 MCH 29 MCHC 33 RDW Coeff of Steven 13.7 Plt Count 150 Neut % (Auto) 64.2 Lymph % (Auto) 25.8 [place] % (Auto) 5.7 Eos % (Auto) 3.9 Baso % (Auto) 0.3 Neut # (Auto) 4.66 Lymph # (Auto) 1.87 [place] # (Auto) 0.40 Eos # (Auto) 0.28 Baso # (Auto) 0.02 Abs Immat Gran (auto) 0.01 Imm/Tot Granulo (auto) 0.1 INR APTT Sodium Potassium Chloride Carbon Dioxide Anion Gap BUN Creatinine Estimated Creat Clear Estimated GFR Glucose Calcium Total Bilirubin AST ALT Alkaline Phosphatase C-Reactive Protein Total Protein Albumin Blood Type Antibody Screen
--- NOTE | 2025-02-18 19:14 | PC.NURSE ---
End of shift: Pt has been A&O, afebrile and VSS today. He has no c/o pain, nausea or dizziness. Pt reported x2 formed bloody stools with some bright red blood. Hgb stable this morning at 11.6. Pt had an EGD this morning which came back negative for any active bleeds or ulcers. He was advanced from NPO to clear liquid diet & tolerating it well. He's independent in his room. TELE reads NSR. PIV in left FA SL. Blood sugars were 148 & 133; no insulin was given today.
[2025-02-19] VITALS (8 sets, daily range): BP systolic 131–158; BP diastolic 68–82; PULSE 61–86; RESP 16–18; TEMP 36.5–37.4; O2SAT 96–99
--- NOTE | 2025-02-19 05:44 | PC.NURSE ---
[id number] Pt slept well, bm x2 this shift, with bright red blood present. denies pain, vitals stable, denies lightheaded/ dizziness.
[2025-02-19 06:17] LABS: Hematocrit 32.6 % (37.0-53.0); Hemoglobin* 10.8 gm/dL (13.5-17.5); Immature Granulocytes Abs Auto 0.01 K/uL (0.00-0.30); Immature Granulocytes Pct Auto 0.1 %; Lymphocytes Absolute Auto 1.51 K/uL (0.90-2.90); Mean Corpuscular HGB Conc 33 gm/dL (32-36); Mean Corpuscular Hemoglobin 30 pg (26-34); Mean Corpuscular Volume 90 fL (80-100); RDW Coefficient of Variation % 13.5 % (11.5-15.5); Red Blood Count 3.63 m/uL (4.30-5.90); White Blood Count* 6.74 K/uL (4.50-11.00)
[2025-02-19 06:22] LABS: Slide Review Reflex No
[2025-02-19] MEDS: PANTOPRAZOLE SODIUM 40 MG INJ IVP (09:19)
[2025-02-19] MEDS: SODIUM CHLORIDE 0.9 % (FLUSH) 10 ML SYRINGE 5 ML IVF ×2 (09:19→20:44)
[2025-02-19] MEDS: ATORVASTATIN CALCIUM 10 MG TABLET PO (09:19)
[2025-02-19] MEDS: bisacodyL 5 MG TABLET DR 10 MG PO (11:49)
--- NOTE | 2025-02-19 11:50 | PM.IMPN1 ---
Assessment and Plan Assessment and plan (1) Melena: Problem comment: Monitor for ongoing bleeding, monitor vital signs, serial hemoglobins, symptoms. Consider CT abdomen with contrast if ongoing significant bleeding. Transfuse as need Continue Protonix 02/18: Dark stool this morning. EGD without evidence of acute bleed. Resume clears. Continue to monitor for new or worsening symptoms. Possible discharge home as improves with outpatient follow-up at [facility] H pylori biopsy obtained, pending Hold aspirin and Plavix - likely source 02/19: Bright red blood with stools x2 overnight. hemoglobin 10.8, down from 14.[address] Talamantes, start prep for inpatient colonoscopy tomorrow Status: Acute (2) History of atrial fibrillation: Problem comment: Hx Watchman device. On dual antiplatelet therapy. Temporary hold on Plavix and aspirin with active bleeding. Consult [facility] depending on clinical course Status: Acute (3) KYRA (obstructive sleep apnea): Problem comment: Home CPAP Status: Chronic (4) Type 2 diabetes mellitus: Problem comment: Hold oral hypoglycemics. Sliding scale insulin while NPO Status: Chronic (5) Essential hypertension: Problem comment: Hold antihypertensives pending clinical course 02/19 normotensive, slightly higher. okay to restart lisinopril and amlodipine. Holding HCTZ Status: Chronic (6) History of colon cancer: Problem comment: [id number] transverse colon resected 10/08/11. Clear since. Negative colonoscopy in November 2023. Oncology follow-up January 2025 - cancer free Status: Acute Plan Plan for discharge if remains stable, melena improving. Will discuss with Cardiology for resumption/alternatives aspirin and apixaban. Total Time Spent Total Time Spent: Today I spent 45 minutes seeing the patient, reviewing Expanse and EPIC notes/diagnostics, discussing the care plan with our care time that includes social work, PT/OT, pharmacy, RT, group home and documenting my impressions and plan in the medical record. Subjective Date Seen: 02/19/25 Interval history: patient is seen sitting up in a chair, at bedside. Continues to feel well. On admission had melanotic stools. Overnight had 2 bright red stools. no new symptomatology. No headache or dizziness. No chest pain or shortness of breath. No nausea or vomiting. Tolerating clears. Ambulating frequently. Hemoglobin has dropped to 10.8 from 14.3 on admission. Discussed with Dr. Talamantes, General Surgery, will prep for colonoscopy for tomorrow. Exam Narrative: Exam Narrative: PHYSICAL EXAM General: Very pleasant, conversant, NAD Cardiovascular: RRR, S1S2. No pitting edema Pulmonary: CTA bilaterally without rhonchi, rales, expiratory wheezes. No dyspnea Abdominal: Soft, nondistended, NTTP Neurological: Alert, answering questions appropriately, cranial nerves intact, no focal findings Extremities: No gross joint deformity or swelling. AROMI. Neurovascularly intact Skin: Warm, dry. Const: Vital Signs, click to edit/add: Vital Signs - 24 hr 02/18/25 15:00 02/18/25 15:00 02/18/25 15:00 Temperature 99 F Pulse Rate 72 Pulse Rate [Left P ulse Oximeter] 73 72 Respiratory Rate 18 18 Blood Pressure [Ri ght Arm] 140/76 H Pulse Oximetry 97 Oxygen Delivery Me thod Room Air 02/18/25 19:00 02/18/25 23:00 02/18/25 23:00 Temperature 99.6 F 98.6 F Pulse Rate 62 Pulse Rate [Left P ulse Oximeter] 69 73 Respiratory Rate 18 18 Blood Pressure [Ri ght Arm] 155/80 H 142/69 H Pulse Oximetry 97 97 Oxygen Delivery Me thod Room Air Room Air 02/19/25 04:07 02/19/25 07:00 02/19/25 08:15 Temperature 97.8 F Pulse Rate 86 Pulse Rate [Left P ulse Oximeter] 75 77 Respiratory Rate 16 18 Blood Pressure [Ri ght Arm] 141/68 H 146/70 H Pulse Oximetry 98 98 Oxygen Delivery Me thod Room Air Room Air 02/19/25 08:15 Temperature Pulse Rate Pulse Rate [Left P ulse Oximeter] 77 Respiratory Rate 18 Blood Pressure [Ri ght Arm] Pulse Oximetry Oxygen Delivery Me thod Labs Labs: Laboratory Results - last 24 hr 02/19/25 05:38 WBC 6.74 RBC 3.63 L Hgb 10.8 L Hct 32.6 L MCV 90 MCH 30 MCHC 33 RDW Coeff of Steven 13.5 Plt Count 142 Neut % (Auto) 68.9 Lymph % (Auto) 22.4 [place] % (Auto) 5.2 Eos % (Auto) 3.0 Baso % (Auto) 0.4 Neut # (Auto) 4.64 Lymph # (Auto) 1.51 [place] # (Auto) 0.40 Eos # (Auto) 0.20 Baso # (Auto) 0.03 Abs Immat Gran (auto) 0.01 Imm/Tot Granulo (auto) 0.1
[2025-02-19] MEDS: PEG-3350 SODIUM CL/BICARB-KCL 4,000 ML SOLN 4000 ML PO (16:27)
--- NOTE | 2025-02-19 17:49 | PC.NURSE ---
HR increased to 144 when up to BR. Asymptomatic. Primary nurse assessing, will do EKG & B/P. Dr. Dorsey updated via telephone. No new orders at this time.
[2025-02-19] MEDS: SIMETHICONE 80 MG TAB.CHEW 160 MG PO (18:16)
--- NOTE | 2025-02-19 19:00 | PC.NURSE ---
End of Shift ([id number]): Patient pleasant and cooperative, A&O. VSS, afebrile. SpO2 maintained above 90% on RA. Denies SOB/chest pain this shift. He has had 1 BM this shift before we started the bowel prep, with bright red blood. Denies abdominal pain, denies nausea & vomiting.? Bowel prep started at 1630, pt has had multiple BM?s since. orientation & mobility specialist noticed when patient was up that his HR went up to 144, asymptomatic, MD notified, EKG complete. Tolerating clear liquid diet. Independent in room. ?
[2025-02-19] MEDS: LACTATED RINGERS 1000 ML 1,000 ML 125 ML IV (20:42)
[2025-02-20 01:58] VITALS: PULSE 63
[2025-02-20] MEDS: LACTATED RINGERS 1000 ML 1,000 ML 125 ML IV (04:19)
[2025-02-20 04:24] VITALS: BP 160/89; PULSE 83; RESP 20; TEMP 36.9; O2SAT 98
[2025-02-20] MEDS: PEG-3350 SODIUM CL/BICARB-KCL 4,000 ML SOLN 2000 ML PO (06:07)
[2025-02-20] MEDS: SIMETHICONE 80 MG TAB.CHEW 160 MG PO (06:13)
[2025-02-20 06:31] LABS: Hematocrit 34.1 % (37.0-53.0); Hemoglobin* 11.2 gm/dL (13.5-17.5); Immature Granulocytes Abs Auto 0.01 K/uL (0.00-0.30); Immature Granulocytes Pct Auto 0.1 %; Lymphocytes Absolute Auto 2.35 K/uL (0.90-2.90); Mean Corpuscular HGB Conc 33 gm/dL (32-36); Mean Corpuscular Hemoglobin 30 pg (26-34); Mean Corpuscular Volume 91 fL (80-100); RDW Coefficient of Variation % 13.6 % (11.5-15.5); Red Blood Count 3.77 m/uL (4.30-5.90); White Blood Count* 8.05 K/uL (4.50-11.00)
[2025-02-20 06:33] LABS: Slide Review Reflex No
[2025-02-20 06:45] LABS: Chloride* 106 mmol/L (96-114); Potassium* 4.4 mmol/L (3.6-5.1); Sodium* 139 mmol/L (135-149)
[2025-02-20 06:48] LABS: Blood Urea Nitrogen* 14 mg/dL (7-30); Creatinine* 0.8 mg/dL (0.5-1.5); Est. Creatinine Clearance* 54.15; Estimated Glomerular Filt Rate 88 ml/min
[2025-02-20 06:49] LABS: Anion Gap 7 mEq/L (7-15); Calcium* 8.7 mg/dL (8.4-10.6); Carbon Dioxide* 26 mmol/L (20-32); Glucose* 115 mg/dL (60-115)
--- NOTE | 2025-02-20 07:59 | PC.NURSE ---
Arrived to find this patient alert and oriented although a stable hypertensive. They are at a strong, normal level of strength. Only notable exception on assessment was a foot wound on his right second toe. I cleaned this wound and covered it with a band aid, educating the patient on the need to monitor for infection or wound spread. Bowel prep was initiated at 0600 and completed in time to be NPO at 0800. No concerns overnight.?
[2025-02-20] MEDS: AMLODIPINE 5 MG TABLET PO (08:39)
[2025-02-20] MEDS: PANTOPRAZOLE SODIUM 40 MG INJ IVP (08:39)
[2025-02-20] MEDS: ATORVASTATIN CALCIUM 10 MG TABLET PO (08:39)
[2025-02-20 08:53] VITALS: PULSE 71
[2025-02-20 08:57] VITALS: BP 145/97; PULSE 93; RESP 20; TEMP 36.4; O2SAT 96
[2025-02-20 11:00] VITALS: BP 159/75; PULSE 80; RESP 20; TEMP 36.9; O2SAT 95
--- NOTE | 2025-02-20 11:56 | P.ANES_ITS ---
Anesthesia Charges Start Date/Time Anesthesia Start Date: 02/20/25 Anesthesia Start Time: 12:00 Stop Date/Time Anesthesia Stop Date: 02/20/25 Anesthesia Stop Time: 12:45 Summary Extremes of Age - Over 70 or under 1: MDA Coding CPT Codes CPT Codes: ANES LWR INTST SCR COLSC - 57697 ([id number]) QK - FUR EXAMINER 2-4 CNCRNT ANES PROC, QX - SUPERVISOR WHIPPED TOPPING SVC W/ MD MED DIRECTION, P3 - PATIENT W/SEVERE SYS DISEASE Additional Codes: Summary - Emergency: [id number] 1 W.PM.ANESCHARGES 1 1 W.ANESEMER Summary - Extremes of Age - Over 70 or under 1: MDA ([id number])
--- NOTE | 2025-02-20 11:56 | W.ANESCHARGE ---
Anesthesia Charges Start Date/Time Anesthesia Start Date: 02/20/25 Anesthesia Start Time: 12:00 Stop Date/Time Anesthesia Stop Date: 02/20/25 Anesthesia Stop Time: 12:45 Summary Extremes of Age - Over 70 or under 1: MDA Coding CPT Codes CPT Codes: ANES LWR INTST SCR COLSC - 37754 ([id number]) QK - SERVER SERVICE ASSISTANT 2-4 CNCRNT ANES PROC, QX - BLOCKER AND POLISHER SVC W/ MD MED DIRECTION, P3 - PATIENT W/SEVERE SYS DISEASE Additional Codes: Summary - Emergency: [id number] 1 W.PM.ANESCHARGES 1 1 W.ANESEMER Summary - Extremes of Age - Over 70 or under 1: MDA ([id number])
--- NOTE | 2025-02-20 12:34 | P.DS_ITS ---
DS: Providers Provider Date Seen: 02/20/25 Date of admission: 02/19/25 09:03 Primary care physician: Brennan Segura MD Admitting Clinician: Gagandeep Dorsey MD Consults: 02/19/25 10:05 Consult to Physician [CONS] Routine Comment: Consulting Provider: General Surgery, [facility] Has provider been notified: Yes Attending Physician on discharge: Kyra Murdock, BRENDAN[facility] Date of Discharge: 02/20/25 DS: Diagnosis Discharge Diagnosis (1) Melena: Status: Resolved Problem details: Monitor for ongoing bleeding, monitor vital signs, serial hemoglobins, symptoms. Consider CT abdomen with contrast if ongoing significant bleeding. Transfuse as need Continue Protonix 02/18: Dark stool this morning. EGD without evidence of acute bleed. Resume clears. Continue to monitor for new or worsening symptoms. Possible discharge home as improves with outpatient follow-up at [facility] H pylori biopsy obtained, pending Hold aspirin and Plavix - likely source 02/19: Bright red blood with stools x2 overnight. hemoglobin 10.8, down from 14.[address] Talamantes, start prep for inpatient colonoscopy tomorrow 02/20: Patient a few more bloody stools overnight with colon prep. Two loose stools this morning without occult blood, yellow in color. Hemoglobin up at 11.2. Colonoscopy completed by General surgery, reporting very small clot at the proximal colon near anastomoses, not adherent. Angioectasia noted of the descending colon. No active bleed. Questions if small bowel bleed. Recommending red tag cell study which are only completed at this facility on Tuesdays. On discharge, hgb stable, now 11.2. Last 2 stools without occult blood. No evidence of acute bleed found on EGD or colonoscopy. General Surgery recommending red tag cell study which could be done outpatient here on Tuesdays - would need to be done elsewhere if bleeding returns and needs to be completed sooner. Continue PPI. Discussed anticoagulation with [facility]iology, recommending restarting Plavix, hold ASA. They have a phone appointment tomorrow 02/21/25. Discussed returning to ED if new or worsening bleeding. Outpatient follow-up with PCP, Dr. Segura, otherwise next week. (2) History of atrial fibrillation: Status: Acute Problem details: Hx Watchman device, done at [facility] in [place]. On dual antiplatelet therapy. Temporary hold on Plavix and aspirin with active bleeding. As above, restart Plavix, hold aspirin until follow-up with Cardiology (3) KYRA (obstructive sleep apnea): Status: Chronic Problem details: Home CPAP (4) Type 2 diabetes mellitus: Status: Chronic Problem details: Hold oral hypoglycemics. Sliding scale insulin while NPO Resume home medications on discharge. Outpatient follow-up with PCP (5) Essential hypertension: Status: Chronic Problem details: Hold antihypertensives pending clinical course 02/19 normotensive, slightly higher. okay to restart lisinopril and amlodipine. Holding HCTZ Resume all home medications on discharge (6) History of colon cancer: Status: Acute Problem details: [id number] transverse colon resected 10/08/11. Clear since. Negative colonoscopy in November 2023. Oncology follow-up January 2025 - cancer free DS: Summary Hospital Course Hospital Course: Admitted with acute GI bleed, suspected in setting of chronic Plavix and aspirin use following Watchmann device placement. These medications were held. EGD unremarkable for acute bleed. Colonoscopy without evidence of acute bleed; small clot noted proximal colon. General Surgery recommending red tag cell test. This is only done on Tuesdays in our facility so will need outpatient follow up. Tolerated advanced diet. [facility], hold ASA until outpatient follow up. Status at Discharge Functional status at discharge: independent ambulation Overall status at discharge: patient is back to baseline Time Spent with Patient Time attestation: Total time spent providing and/or coordinating discharge services: Time spent: Greater than 30 minutes Exam Narrative: Exam Narrative: PHYSICAL EXAM General: Pleasant, conversant, NAD Cardiovascular: RRR Pulmonary: No dyspnea Neurological: Alert, answering questions appropriately Skin: Warm, dry. Const: Vital Signs, click to edit/add: Vital Signs - 24 hr 02/19/25 15:00 02/19/25 15:00 02/19/25 15:30 Temperature 97.7 F Pulse Rate 73 Pulse Rate [Left P ulse Oximeter] 77 77 Respiratory Rate 18 18 Blood Pressure [Ri ght Arm] 131/71 Pulse Oximetry 99 Oxygen Delivery Me thod Room Air 02/19/25 19:50 02/19/25 23:30 02/20/25 01:58 Temperature 98.6 F 97.8 F Pulse Rate 63 Pulse Rate [Left P ulse Oximeter] 61 67 Respiratory Rate 16 16 Blood Pressure [Ri ght Arm] 144/75 H 158/82 H Pulse Oximetry 96 98 Oxygen Delivery Me thod Room Air Room Air 02/20/25 04:24 02/20/25 08:53 02/20/25 08:57 Temperature 98.5 F 97.6 F Pulse Rate 71 Pulse Rate [Left P ulse Oximeter] 83 93 Respiratory Rate 20 20 Blood Pressure [Ri ght Arm] 160/89 H 145/97 H Pulse Oximetry 98 96 Oxygen Delivery Me thod Room Air Room Air DS: Data Data Completed and Pending Completed studies during hospitalization: EGD completed 02/18/2025 Colonoscopy completed 02/20/2025 Pending studies at discharge: H pylori Labs on day of discharge: Labs from last 24 hours 02/20/25 06:20 WBC 8.05 RBC 3.77 L Hgb 11.2 L Hct 34.1 L MCV 91 MCH 30 MCHC 33 RDW Coeff of Steven 13.6 Plt Count 161 Neut % (Auto) 62.6 Lymph % (Auto) 29.2 [place] % (Auto) 4.7 Eos % (Auto) 3.0 Baso % (Auto) 0.4 Neut # (Auto) 5.04 Lymph # (Auto) 2.35 [place] # (Auto) 0.40 Eos # (Auto) 0.24 Baso # (Auto) 0.03 Abs Immat Gran (auto) 0.01 Imm/Tot Granulo (auto) 0.1 Sodium 139 Potassium 4.4 Chloride 106 Carbon Dioxide 26 Anion Gap 7 BUN 14 Creatinine 0.8 Estimated Creat Clear 54.15 Estimated GFR 88 Glucose 115 Calcium 8.7 Discharge Plan Discharge Disposition: Home, Self-Care Date of Admission: 02/19/25 09:03 Attending Provider on Discharge: Kyra Murdock Consulting Providers: Brea Talamantes; Roxana Brandt; Dennise Starkey Primary Care Provider: Brennan Segura Condition: Improved Anticipated Discharge Date/Time: 02/20/25 16:00 Discharge Medications: New omeprazole 40 mg capsule,delayed release(DR/EC) 40 mg PO DAILY Qty: 30 0RF Continued metformin 500 mg tablet 1,000 mg PO DAILY atorvastatin 10 mg tablet 10 mg PO DAILY clopidogrel 75 mg tablet 75 mg PO DAILY amlodipine 5 mg tablet 5 mg PO QAM lisinopril 5 mg tablet 5 mg PO QAM cholecalciferol (vitamin D3) 25 mcg (1,000 unit) capsule 25 mcg PO DAILY hydrochlorothiazide 12.5 mg tablet 12.5 mg PO QAM Jardiance 10 mg tablet 10 mg PO QAM mecobalamin (vitamin B12) 1,000 mcg lozenge 1,000 mcg PO DAILY Rx Instructions: allow to dissolve in mouth OR may chew lightly before swallowing PreserVision AREDS 2 Plus MV 200 mcg-15 mcg- 5 mg-1 mg capsule 1 cap PO DAILY Discontinued aspirin 81 mg tablet 81 mg PO DAILY Discharge Orders: Discharge Order (Routine); Ordered 02/20/25 Ordered By: Kyra Murdock Patient Education: Omeprazole (By mouth), Gastrointestinal Bleeding (GEN) Additional Instructions: Per Cardiology, resume taking your Plavix but do not take Aspirin until you follow up with Cardiology. Take Omeprazole daily. Outpatient follow up with Dr. Segura Activity Level: Activity as Tolerated Discharge Diet: Other Diet Detail: Gradual resumption of diet Follow Up Appointments: Brennan Segura MD [Primary Care Provider, Internal Medicine] - 02/26/25 10:00 am Referral Note: [facility] for hospital follow-up. Forms: [employer] Info Instructions Discharge Comments: Follow up with Cardiology via phone appt as previously scheduled tomorrow 02/21/25
--- NOTE | 2025-02-20 12:53 | P.ANES_ITS ---
Anesthesia Charges Start Date/Time Anesthesia Start Date: 02/20/25 Anesthesia Start Time: 12:00 Stop Date/Time Anesthesia Stop Date: 02/20/25 Anesthesia Stop Time: 12:45 Summary Emergency: MDA Extremes of Age - Over 70 or under 1: AIRLINE RESERVATION AGENT Coding CPT Codes CPT Codes: ANES LWR INTST SCR COLSC - 61076 ([id number]) P3 - PATIENT W/SEVERE SYS DISEASE, QX - AIRLINE RESERVATION AGENT SVC W/ MD MED DIRECTION, QK - KNOCKER OFF 2-4 CNCRNT ANES PROC Additional Codes: Summary - Emergency: MDA ([id number]) Summary - Extremes of Age - Over 70 or under 1: AIRLINE RESERVATION AGENT ([id number])
--- NOTE | 2025-02-20 12:53 | W.ANESCHARGE ---
Anesthesia Charges Start Date/Time Anesthesia Start Date: 02/20/25 Anesthesia Start Time: 12:00 Stop Date/Time Anesthesia Stop Date: 02/20/25 Anesthesia Stop Time: 12:45 Summary Emergency: MDA Extremes of Age - Over 70 or under 1: LEAK PATCHER Coding CPT Codes CPT Codes: ANES LWR INTST SCR COLSC - 31332 ([id number]) P3 - PATIENT W/SEVERE SYS DISEASE, QX - LEAK PATCHER SVC W/ MD MED DIRECTION, QK - BAIT DIGGER 2-4 CNCRNT ANES PROC Additional Codes: Summary - Emergency: MDA ([id number]) Summary - Extremes of Age - Over 70 or under 1: LEAK PATCHER ([id number])
[2025-02-20 13:41] VITALS: BP 159/74; PULSE 73; RESP 18; O2SAT 99
--- NOTE | 2025-02-20 15:14 | PC.NURSE ---
Shift Summary: Patient pleasant and cooperative. Up independently, frequently walking in halls. Vitals stable and WNL. NPO this morning for scopes, regular diet once scope completed. Tolerated regular diet well, denies nausea or pain. IV removed with catheter intact. Results of scope and treatment plan reviewed with patient and MD. Discharge instructions, follow up, and medication changes reviewed with patient and . Patient d/c @ 0173 to home.
== END 2025-02-20 14:53 | disposition home or self-care (01) | DRG 378 ==
LOC: ED 21:27 → MEDSURG 21:52
PROVIDERS: Admitting Provider Family Medicine; Emergency Provider Family Medicine; PCP Internal Medicine; Visit Provider Family Medicine
DX: K55.21 Angiodysplasia of colon with hemorrhage (principal); D62 Acute posthemorrhagic anemia; K92.1 Melena; T39.015A Adverse effect of aspirin, initial encounter; T45.525A Adverse effect of antithrombotic drugs, initial encounter; Z98.0 Intestinal bypass and anastomosis status; Z85.038 Personal history of other malignant neoplasm of large intestine; G47.33 Obstructive sleep apnea (adult) (pediatric); E11.9 Type 2 diabetes mellitus without complications; I10 Essential (primary) hypertension; E66.01 Morbid (severe) obesity due to excess calories; I35.0 Nonrheumatic aortic (valve) stenosis; I48.91 Unspecified atrial fibrillation; Z95.818 Presence of other cardiac implants and grafts; I25.2 Old myocardial infarction; Z79.82 Long term (current) use of aspirin; Z79.02 Long term (current) use of antithrombotics/antiplatelets; Z79.84 Long term (current) use of oral hypoglycemic drugs
CPT/HCPCS: 00731; 00812; 36415; 43239; 45378; 80048; 80053; 82962; 85018; 85025; 85610; 85730; 86140; 86850; 86900; 86901; 93005; 94761; 99100; 99140; 99284; 99285; A9270; G0378; J2371; J2470; J2704; J3490; J7030; J7120

== ENCOUNTER 2025-02-26 10:30 | Outpatient (CLI) | payer MEDICARE, SELFPAY | END 2025-02-26 10:31 | disposition home or self-care (01) | LOC: NFLDREF 10:31 | PROVIDERS: PCP Internal Medicine; Visit Provider Internal Medicine | DX: I10 Essential (primary) hypertension (principal); E78.5 Hyperlipidemia, unspecified | CPT/HCPCS: 80048 ==

== ENCOUNTER 2025-04-20 15:04 | Outpatient (CLI) | payer MEDICARE, SELFPAY | END 2025-04-20 15:05 | disposition home or self-care (01) | LOC: NFLDUCREF 15:05 | PROVIDERS: PCP Internal Medicine; Visit Provider Physician Assistant | DX: L02.91 Cutaneous abscess, unspecified (principal) | CPT/HCPCS: 87070 ==

== ENCOUNTER 2025-05-08 16:10 | Outpatient (CLI) | payer MEDICARE, SELFPAY | END 2025-05-08 16:11 | disposition home or self-care (01) | PROVIDERS: PCP Internal Medicine; Visit Provider Internal Medicine | DX: D64.9 Anemia, unspecified (principal) | CPT/HCPCS: 82746; 83540; 83550; 85045 ==

== ENCOUNTER 2025-05-20 09:19 | Outpatient (CLI) | payer MEDICARE, SELFPAY | END 2025-05-20 09:20 | disposition home or self-care (01) | LOC: NFLDREF 05-21 08:57 | PROVIDERS: PCP Internal Medicine; Referring Provider Internal Medicine; Visit Provider Internal Medicine | DX: R53.83 Other fatigue (principal) | CPT/HCPCS: 80053; 80061; 82043; 82570 ==

== ENCOUNTER 2025-05-22 15:00 | Outpatient (CLI) | payer MEDICARE, SELFPAY | END 2025-05-22 15:01 | disposition home or self-care (01) | LOC: NFLDREF 15:01 | PROVIDERS: PCP Internal Medicine; Visit Provider Internal Medicine | DX: R53.83 Other fatigue (principal) | CPT/HCPCS: 84443 ==